=== PATIENT | male | born 1955 | race Caucasian/White ===

== ENCOUNTER → 2024-03-20 | Outpatient (BNVA) | payer MEDICARE, MEDICAID, SELFPAY | END | disposition home or self-care (01) | PROVIDERS: PCP Family Medicine; Referring Provider Family Medicine; Visit Provider Urology | DX: N40.1 Benign prostatic hyperplasia with lower urinary tract symptoms (principal); N13.8 Other obstructive and reflux uropathy; R35.0 Frequency of micturition; N28.89 Other specified disorders of kidney and ureter; E11.9 Type 2 diabetes mellitus without complications; I10 Essential (primary) hypertension; F41.9 Anxiety disorder, unspecified; Z80.9 Family history of malignant neoplasm, unspecified; E66.9 Obesity, unspecified; Z68.36 Body mass index [BMI] 36.0-36.9, adult; F17.210 Nicotine dependence, cigarettes, uncomplicated; K21.9 Gastro-esophageal reflux disease without esophagitis; J44.9 Chronic obstructive pulmonary disease, unspecified; F32.A Depression, unspecified | CPT/HCPCS: 99212; G0463 ==

== ENCOUNTER → 2024-04-25 | Outpatient (CLI) | payer MEDICARE, MEDICAID, SELFPAY ==
--- NOTE | 2024-04-25 09:45 | XR_ITS ---
Examination: Retroperitoneal ultrasound, complete Technique: Multiple high resolution grayscale images of the retroperitoneum obtained, including kidneys and bladder. Exam date and time:April 25, 2024 0933 hours INDICATIONS: Diagnosis malignant neoplasm kidneys, CT examination December 26, 2023 12 mm low-density mass lower pole right kidney, patient states frequent urination for years. FINDINGS: Right kidney 9.7 x 6.0 x 7.0 cm cortex 1.8 cm Lower pole cyst 21 mm Left kidney 11.4 x 6.1 x 4.6 cm renal cortex 1.7 cm Moderate bilateral renal parenchymal scar formation No bladder mass or bladder calculi Bladder prevoid volume 48.6 cc unable to void Prostate volume 38.4 cc no prostate nodules IMPRESSION: Lower pole right renal cyst 21 x 19 mm No solid renal mass lesion Moderate bilateral renal parenchymal scar formation
[2024-04-25 11:02] LABS: Prostate Specific Antigen 0.27 ng/mL (0-4.00)
== END | disposition home or self-care (01) ==
LOC: CDIM 09:02 → COPL 09:56
PROVIDERS: Referring Provider Urology; Visit Provider Radiology Diagnostic Radiology
DX: N28.1 Cyst of kidney, acquired (principal); N28.89 Other specified disorders of kidney and ureter; N40.1 Benign prostatic hyperplasia with lower urinary tract symptoms
CPT/HCPCS: 36415; 76770; 84153

== ENCOUNTER → 2024-06-29 | Outpatient (BNVA) | payer MEDICARE, MEDICAID, SELFPAY | END | disposition home or self-care (01) | PROVIDERS: PCP Family Medicine; Referring Provider Family Medicine; Visit Provider Urology | DX: N40.1 Benign prostatic hyperplasia with lower urinary tract symptoms (principal); N13.8 Other obstructive and reflux uropathy; N28.1 Cyst of kidney, acquired; I10 Essential (primary) hypertension; E11.42 Type 2 diabetes mellitus with diabetic polyneuropathy; F41.9 Anxiety disorder, unspecified; E66.9 Obesity, unspecified; Z68.36 Body mass index [BMI] 36.0-36.9, adult; F17.210 Nicotine dependence, cigarettes, uncomplicated; J44.9 Chronic obstructive pulmonary disease, unspecified; K21.9 Gastro-esophageal reflux disease without esophagitis | CPT/HCPCS: 81003; 99212; G0463 ==

== ENCOUNTER → 2024-07-31 | Outpatient (CLI) | payer MEDICARE, MEDICAID, SELFPAY ==
--- NOTE | 2024-07-31 09:00 | XR_ITS ---
Examination: MRI brain without intravenous contrast. Date and time of exam: July 31, 2024 0930 hours INDICATIONS: Increasing memory loss 1 year COMPARISON: October 16, 2013 Technique: Multiple axial and sagittal images of the brain obtained. Siemens high-resolution 1.5 Starla short bore scanners utilized. Sagittal sections, T1-weighted, TR 500, TE 14, are performed. Axial sections proton-density and T2-weighted have been obtained. Inversion recovery axial images, TR 9, 260, TE 111, TI 2500. Diffusion weighted images, axial sections, TR 4800, TE 128, B value 1000 Axial sections, ADC map, TR 4800, TE 128 Findings: Enlargement of the sella turcica is not present. The optic chiasm and infundibular are not remarkable. Prepontine and interpeduncular cisterns are not enlarged. There is no localized enlargement of the medulla or benny. Fourth ventricle and cerebellar tonsils appear normal in position. No subacute area of hemorrhage density is seen. Mass in the cerebellopontine angle region is not evident. Globes symmetrical. Orbital musculature including medial lateral rectus muscles do not exhibit abnormality. Diffusion-weighted images demonstrate no focus of restricted diffusion. Increased white matter signal mild Mass effect upon the ventricular system is not identified. Impression: Negative for acute hemorrhage, mass effect or midline shift No acute infarct Mild chronic microvascular white matter change
== END | disposition home or self-care (01) ==
PROVIDERS: PCP Family Medicine; Referring Provider Family Medicine; Visit Provider Family Medicine
DX: R90.82 White matter disease, unspecified (principal)
CPT/HCPCS: 70551

== ENCOUNTER 2025-02-10 19:47 | Inpatient (IN) | payer MEDICARE, MEDICAID, SELFPAY ==
[2025-02-10] VITALS (7 sets, daily range): BP systolic 103–166; BP diastolic 65–108; PULSE 74–96; RESP 16–84; TEMP 37.5; O2SAT 9–96; BMI 35.6
--- NOTE | 2025-02-10 19:59 | EKG_ITS ---
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
--- NOTE | 2025-02-10 19:59 | XR_ITS ---
Examination: AP chest single view Technique: AP portable semiupright chest single view Date and time: May 12, 2025, 2011 hrs., Comparison February 15, 2022 Indications: Shortness of breath chest pain today. Findings: Moderate enlargement cardiac contour Prominent vascular congestion including central vascular engorgement Perihilar basilar edema. Possible superimposed pneumonia at the right lung base Impression: Mild CHF Possible superimposed pneumonia right base
--- NOTE | 2025-02-10 20:11 | PD.EDADULT ---
ED General RME/HPI General Chief complaint: Shortness of Breath/Dyspnea Stated complaint: SOB Time Seen by Provider: 02/10/25 19:58 Arrival date/time: 02/10/25 19:47 CC: Shortness of breath difficulty breathing HPI patient has been lying on his bed for the past 5 days but getting up to use the restroom and get something to eat. The patient states he had intermittent episodes shortness of breath for the past 3 weeks. Patient has a history of COPD and about diabetes is seen by Dr. Miranda. Patient also has a history of hypertension hyperlipidemia. Patient states he stopped drinking 25 years ago stopped smoking [address] drugs Related Data Home Medications ?Medication ?Instructions ?Recorded ?Confirmed aspirin 81 mg tablet 81 mg PO QDAY 10/03/20 02/11/25 gabapentin 600 mg tablet 600 mg PO QID 10/03/20 02/11/25 metformin 500 mg tablet 500 mg PO BID 10/03/20 02/11/25 omeprazole 20 mg capsule,delayed 20 mg PO DAILY 10/03/20 02/11/25 release tiotropium 2.5 mcg-olodaterol 2.5 2 puff inhalation Q24H 10/27/20 02/11/25 mcg/actuation mist for inhalation (Stiolto Respimat) dutasteride 0.5 mg capsule 0.5 mg PO QDAY 03/20/24 02/11/25 losartan 100 1 tab PO QDAY 03/20/24 02/11/25 mg-hydrochlorothiazide 25 mg tablet multivitamin 1 tab PO QDAY 03/20/24 02/11/25 hydrochlorothiazide 12.5 mg capsule 12.5 mg PO DAILY 02/11/25 02/11/25 losartan 25 mg tablet 25 mg PO DAILY 02/11/25 02/11/25 metoprolol succinate 100 mg 100 mg PO DAILY 02/11/25 02/11/25 tablet,extended release 24 hr rosuvastatin 10 mg tablet 10 mg PO DAILY 02/11/25 02/11/25 Allergies Allergy/AdvReac Type Severity Reaction Status Date / Time No Known Drug Allergies Allergy Verified 02/10/25 20:00 Review of Systems Review of Systems Narrative Review of Systems: GEN: No fever, no chills, no weight loss EYES: No discharge, no visual changes, no pain HEENT: No ear pain, no congestion, no sore throat PULM: + shortness of breath, no cough, no congestion CV: No chest pain, no dyspnea on exertion, no palpitations GI: No nausea, no vomiting, no diarrhea, no pain, no constipation : No frequency, no urgency, no dysuria MUSC/SKEL: No joint pain, no back pain SKIN: No rash PSYCH: No hallucinations, no depression HEME/LYMPH: No easy bleeding or bruising tendencies NEURO: + weakness, no headache ED Exam Narrative Physical exam: [General: Morbidly obese in mild discomfort but not in any acute distress Head normocephalic HEENT: Eyes: Pupils are PERRLA EOMs are intact mouth pink dry membranes uvula is midline swallow symmetrical phonation is normal all other subsystems of HEENT are within acceptable limits Neck is supple nontender, no JVD no edema Chest equal chest rise nontender to palpation Respiratory: Clear to auscultation no wheezes crackles or rubs CV: Rate rhythm is regular no murmurs rubs or clicks Abdomen is distended secondary to body habitus soft nontender no masses positive bowel sounds all 4 quadrants Back: No CVA tenderness no spinous process tenderness from cervical spine thoracic and lumbar spine Skin: Intact no petechiae rash induration ulceration or crepitus Extremities: Moving all extremity against resistance cap refill less than 2 seconds neurosensory intact. No lower extremity edema Neuro: Awake alert oriented x3 Glascow coma 15 no focal deficits] Course Course Course Narrative: Patient's case clinical presentation laboratory findings EKG and chest x-ray discussed with Dr. Isabel, telecommunications line mechanic, who states patient can be ruled out with a 3-hour troponin. Reassessment of this patient at 2210, the patient when taken off oxygen, decreased oxygen saturations to 84%. Given that the x-ray shows that there is a possible superimposed pneumonia in the patient's inactivity the past 5 years I am also concerned whether the patient had a PE and we will CTA the chest to confirm the pneumonia as well as rule out pulmonary emboli. Patient's case presented to Dr. Mayberry, his resident who agreed to accept the patient for hypoxemia COPD exacerbation pneumonia. Quality Measures none Orders Category Date Time Status Bedside COVID-19 Antigen Test NOW Care 02/10/25 19:59 Active COVID-19 Screening Questionnaire NOW Care 02/10/25 22:[address] Screening NOW Care 02/10/25 21:33 Active Decision to Admit X1 Care 02/10/25 22:36 Completed EKG (ED ONLY) *Do not use* NOW Care 02/10/25 19:59 Completed Insert IV NOW Care 02/10/25 20:[address] angio chest Stat Exams 02/10/25 21:33 Completed EKG (ED Only) Stat Exams 02/10/25 19:59 Draft XR chest 1V Stat Exams 02/10/25 19:59 Completed B-Type Natriuretic Peptide Stat Lab 02/10/25 20:36 Completed CBC Stat Lab 02/10/25 20:36 Completed Comprehensive Metabolic Panel Stat Lab 02/10/25 20:36 Completed Drug Screen,Urine Stat Lab 02/11/25 04:40 Completed Influenza A & B Rapid Panel Stat Lab 02/11/25 09:50 Completed LDH (Lactate Dehydrogenase) Stat Lab 02/10/25 20:36 Completed Magnesium Stat Lab 02/10/25 20:36 Completed Partial Thromboplastin Time Stat Lab 02/10/25 20:36 Completed Prothrombin Time with INR Stat Lab 02/10/25 20:36 Completed Troponin I Stat Lab 02/10/25 20:36 Completed Urinalysis, C/S if Indicated Stat Lab 02/11/25 04:40 Completed Urine Culture Stat Lab 02/11/25 04:40 Received ALBUTEROL RT 0.5ml [Proventil Rt 0.5ml] Med 02/10/25 19:59 Discontinued 2.5 mg INH X1 ONE ALBUTEROL RT 0.5ml [Proventil Rt 0.5ml] Med 02/10/25 20:21 Discontinued 7.5 mg INH X1 ONE MethylPREDNISolone.* [SoluMEDROL Inj] Med 02/10/25 20:14 Discontinued 125 mg IVP X1 ONE Sodium Chloride Rt Amanda 0.9% [NS Rt Amanda 0.9%] Med 02/10/25 20:21 Active 3 ml INH PRN PRN cefTRIAXone/D5w 1gm IV premix [Rocephin/D5w 1gm IV Med 02/10/25 21:59 Discontinued premix] 1 gm in 50 ml IV X1 Vital Signs Vital signs: Vital Signs Temperature 99.5 F 02/10/25 19:48 Pulse Rate 92 02/10/25 19:48 Respiratory Rate 17 02/10/25 19:48 Blood Pressure 166/108 H 02/10/25 19:48 Pulse Oximetry (%) 92 L 02/10/25 19:48 Oxygen Delivery Method Oxy Mask 02/10/25 19:48 Discharge Plan Plan Patient Disposition: Admit Acute Care w/in Hospital Patient condition on transfer: Stable Problem List Clinical Impression: COPD exacerbation, Pneumonia, Shortness of breath, Elevated troponin 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 CMP shows no acute electrolyte imbalances and elevated BUN of 28 no elevated T. bili, AST at 147 ALT of 69 LDH 391 Troponin of 0.522 BNP 686. Medication Administration(s) Medication Administration History Acetaminophen (Acetaminophen 325 Mg Tablet) 650 mg PO Q4HR PRN PRN Reason: Fever >100.4 an pain 1-3 Stop: 03/13/25 00:34 Hydrocodone Bitart/Acetaminophen (Hydrocodone/Apap 5/325 Tablet) 1 tab PO Q6HR PRN PRN Reason: Pain4-7 Stop: 02/16/25 09:03 Last Admin: 02/11/25 15:26 Dose: 1 tab Documented By: Admin: 02/11/25 09:39 Dose: 1 tab Documented By: GILLIAN Albuterol/Ipratropium (Albuterol/Ipratropium (Duoneb) Rt Amanda 3 Ml Nebu) 3 ml INH Q6HRRT [place] Stop: 03/13/25 00:59 Last Admin: 02/11/25 19:20 Dose: 3 ml Documented By: Admin: 02/11/25 13:15 Dose: Not Given Documented By: ABIEL Non-Admin Reason: Not In Room Admin: 02/11/25 06:59 Dose: Not Given Documented By: CARL Non-Admin Reason: Patient Refused Admin: 02/11/25 02:06 Dose: 3 ml Documented By: KATIE Aspirin (Aspirin Ec 81 Mg Tabec) 81 mg PO QDAY [place] Stop: 03/13/25 08:59 Last Admin: 02/11/25 08:21 Dose: 81 mg Documented By: GILLIAN Atorvastatin Calcium (Atorvastatin Calcium 20 Mg Tablet) 80 mg PO HS [place] Stop: 03/13/25 20:59 Last Admin: 02/11/25 20:25 Dose: 80 mg Documented By: PAULA Gabapentin (Gabapentin 300 Mg Capsule) 600 mg PO QID [place] Stop: 03/13/25 16:59 Last Admin: 02/11/25 20:25 Dose: 600 mg Documented By: Admin: 02/11/25 17:23 Dose: 600 mg Documented By: GILLIAN Ceftriaxone Sodium/Dextrose (Rocephin/D5w 1gm Iv Premix) 1 gm in 50 mls @ 100 mls/hr IV QDAY [facility] Stop: 02/18/25 08:59 Last Admin: 02/11/25 08:23 Dose: 100 mls/hr Documented By: GILLIAN Azithromycin 500 mg/ Sodium (Chloride) 250 mls @ 250 mls/hr IV QDAY [facility] Stop: 02/19/25 08:59 Heparin Sodium/Dextrose (Heparin In D5w Ivpb) 25,000 unit in 250 mls @ 9.969 mls/hr IV .Q24H [facility]; Protocol Stop: 02/25/25 18:29 Last Admin: 02/11/25 20:57 Dose: 9 units/kg/hr, 9.969 mls/hr Documented By: PAULA Co-signed By: Losartan Potassium (Losartan Potassium 25 Mg Tablet) 25 mg PO DAILY [facility] Stop: 03/13/25 10:29 Last Admin: 02/11/25 10:30 Dose: 25 mg Documented By: GILLIAN Methylprednisolone Sodium Succinate (Methylprednisolone Sod Succ 40 Mg/Ml Vial) 40 mg IVP QDAY [facility] Stop: 02/18/25 08:59 Last Admin: 02/11/25 08:22 Dose: 40 mg Documented By: GILLIAN Metoprolol Succinate (Metoprolol Succinate Xl 25 Mg Tabcr) 100 mg PO DAILY [facility] Stop: 03/13/25 10:29 Last Admin: 02/11/25 11:39 Dose: 100 mg Documented By: GILLIAN Nicotine (Nicotine Patch 21 Mg/24 Hr Patch.Td24) 21 mg TOP QDAY [facility] Stop: 03/13/25 14:14 Last Admin: 02/11/25 15:26 Dose: 21 mg Documented By: GILLIAN Pantoprazole Sodium (Pantoprazole 20 Mg Tablet) 20 mg PO QDAY [place] Stop: 03/13/25 08:59 Last Admin: 02/11/25 08:21 Dose: 20 mg Documented By: GILLIAN Sodium Chloride (Sodium Chloride Rt Amanda 0.9% 3 Ml Nebu) 3 ml INH PRN PRN PRN Reason: SOLN Stop: 03/12/25 20:20 Discontinued Medications Albuterol (Albuterol Rt 2.5 Mg/0.5 Ml Nebu) 2.5 mg INH X1 ONE Stop: 02/10/25 20:00 Last Admin: 02/10/25 20:33 Dose: 2.5 mg Documented By: KATIE Albuterol (Albuterol Rt 2.5 Mg/0.5 Ml Nebu) 7.5 mg INH X1 ONE Stop: 02/10/25 20:22 Last Admin: 02/10/25 20:33 Dose: 7.5 mg Documented By: KATIE Atorvastatin Calcium (Atorvastatin Calcium 20 Mg Tablet) 20 mg PO HS [place] Stop: 03/13/25 20:59 Bumetanide (Bumetanide Inj 0.25 Mg/Ml Vial 4 Ml) 1 mg IVP QDAY [place] Stop: 03/13/25 08:59 Dextrose (Dextrose 50%-Water Inj 50 Ml Syringe) 25 ml IV Q15MIN PRN PRN Reason: BG 50-70 responsive npo pt Stop: 03/12/25 23:51 Dextrose (Dextrose 50%-Water Inj 50 Ml Syringe) 50 ml IV Q15MIN PRN PRN Reason: BG <50 OR BG <70 & pt unresponsive Stop: 03/12/25 23:51 Furosemide (Furosemide Inj 10 Mg/Ml Vial 2 Ml) 20 mg IVP X1 ONE Stop: 02/11/25 02:56 Last Admin: 02/11/25 04:00 Dose: 20 mg Documented By: CAROLINE Furosemide (Furosemide Inj 10 Mg/Ml 4ml Vial) 40 mg IVP X1 ONE Stop: 02/11/25 18:31 Last Admin: 02/11/25 19:01 Dose: 40 mg Documented By: GILLIAN Glucagon (Glucagon Inj 1 Mg Vial) 1 mg IM Q15MIN PRN PRN Reason: BG <70, and no IV access Heparin Sodium (Porcine) (Heparin Sod Inj 5000 Unit/Ml Vial) 5,000 unit SC BID [place] Stop: 02/25/25 08:59 Last Admin: 02/11/25 08:22 Dose: 5,000 unit Documented By: GILLIAN Co-signed By: DAMIÁN Heparin Sodium (Porcine) (Heparin Sod Inj 5000 Unit/Ml Vial) 4,000 unit IV X1 ONE; Protocol Stop: 02/11/25 18:31 Last Admin: 02/11/25 20:56 Dose: 4,000 unit Documented By: PAULA Co-signed By: Ceftriaxone Sodium/Dextrose (Rocephin/D5w 1gm Iv Premix) 1 gm in 50 mls @ 100 mls/hr IV X1 ONE Stop: 02/10/25 22:28 Last Infusion: 02/10/25 22:45 Dose: Infused Documented By: Admin: 02/10/25 22:11 Dose: 100 mls/hr Documented By: RANCHO Azithromycin 500 mg/ Sodium (Chloride) 250 mls @ 250 mls/hr IV QDAY [facility] Stop: 02/18/25 08:59 Azithromycin 500 mg/ Sodium (Chloride) 250 mls @ 250 mls/hr IV X1 ONE Stop: 02/11/25 01:14 Last Infusion: 02/11/25 02:20 Dose: Infused Documented By: Admin: 02/11/25 00:41 Dose: 250 mls/hr Documented By: RANCHO Insulin Human Lispro (Insulin Lispro (Admelog) 1 Unit/0.01 Ml Unit) 0 unit SC ACHS [facility]; Protocol Stop: 03/13/25 07:29 Last Admin: 02/11/25 07:35 Dose: 1 unit Documented By: GILLIAN Co-signed By: INDER Methylprednisolone Sodium Succinate (Methylprednisolone Sod Succ 62.5 Mg/Ml 2ml Vial) 125 mg IVP X1 ONE Stop: 02/10/25 20:15 Last Admin: 02/10/25 20:31 Dose: 125 mg Documented By: RANCHO Morphine Sulfate (Morphine Sulf Inj 4 Mg/Ml Vial) 4 mg IVP Q4HR PRN PRN Reason: pain 4-8 Stop: 02/16/25 00:35 Morphine Sulfate (Morphine Sulf Inj 4 Mg/Ml Vial) 4 mg IVP Q4HR PRN PRN Reason: pain 8-10 Stop: 02/16/25 00:35 Sodium Chloride (Sodium Chloride Rt 10% 15 Ml Nebu) 5 ml INH X1 ONE Stop: 02/10/25 23:40 Last Admin: 02/11/25 04:14 Dose: 5 ml Documented By: KATIE
[2025-02-10] MEDS: MethylPREDNISolone SOD SUCC 62.5 MG/ML 2ML VIAL 125 MG IVP (20:31)
[2025-02-10] MEDS: ALBUTEROL RT 2.5 MG/0.5 ML NEBU INH (20:33)
[2025-02-10] MEDS: ALBUTEROL RT 2.5 MG/0.5 ML NEBU 7.5 MG INH (20:33)
[2025-02-10 20:52] LABS: Basophils # (Auto) 0.0 Thou/mm3 (0.0-0.2); Basophils % (Auto) 0 % (0-2.5); Eosinophils # (Auto) 0.0 Thou/mm3 (0.0-0.5); Eosinophils % (Auto) 0 % (0-10); Hematocrit 54.0 % (41.0-53.0); Hemoglobin 17.0 g/dL (13.5-16.0); Immature Granulocytes Auto 0.02 Thou/mm3 (0.00-0.00); Lymphocytes # (Auto) 1.4 Thou/mm3 (1.0-4.8); Lymphocytes % (Auto) 19 % (10-50); Mean Corpuscular HGB Conc 31.5 g/dl (31.0-37.0); Mean Corpuscular Hemoglobin 27.9 pg (25.0-35.0); Mean Corpuscular Volume 89 fL (80-100); Monocytes # (Auto) 0.8 Thou/mm3 (0.0-0.8); Monocytes % (Auto) 11 % (0-12); Neutrophils # (Auto) 5.1 Thou/mm3 (1.8-7.7); Neutrophils % (Auto) 69 % (37-80); Nucleated Red Blood Cell # 0.00 Thou/mm3 (0.00-0.00); Nucleated Red Blood Cell % 0 /100 WBC (0); Platelet Count 144 Thou/mm3 (140-440); RDW Standard Deviation 51.2 fL (35.1-43.9); Red Blood Count 6.09 Miln/mm3 (4.50-5.90); White Blood Count 7.4 Thou/mm3 (3.8-10.6)
[2025-02-10 21:14] LABS: INR 1.2 (0.9-1.3); Partial Thromboplastin Time 24.3 Seconds (22.0-36.0); Prothrombin Time 12.7 Seconds (9.0-12.2)
[2025-02-10 21:19] LABS: B-Type Natriuretic Peptide 686 pg/mL (0-100)
[2025-02-10 21:20] LABS: Alanine Aminotransferase 69 U/L (10-49); Albumin, Serum 3.9 gm/dL (3.4-4.8); Albumin/Globulin Ratio 1.3 (1.2-2.2); Alkaline Phosphatase 64 U/L (46-116); Anion Gap 5 (7-16); Aspartate Amino Transferase 147 U/L (0-34); BUN/Creatinine Ratio 23 Ratio (12-20); Bilirubin,Total 0.8 mg/dL (0.3-1.2); Blood Urea Nitrogen 28 mg/dL (9-23); Calcium 9.6 mg/dL (8.3-10.6); Calcium (Corrected) 9.7 mg/dL (8.5-10.1); Carbon Dioxide 28.7 mMol/L (20.0-31.0); Chloride 102 mMol/L (98-107); Creatinine (Component) 1.2 mg/dL (0.6-1.3); Estimated Creatinine Clearance 75.3 mL/min (>60); Globulin 3.1 gm/dL (2.3-3.5); Glucose 100 mg/dL (74-106); LDH (Lactate Dehydrogenase) 391 U/L (120-246); Magnesium 2.3 mg/dL (1.6-2.6); Osmolality,Calculated 277 (275-295); Potassium 4.9 mMol/L (3.4-5.1); Sodium 136 mMol/L (136-145); Total Protein 7.0 gm/dL (5.7-8.2); eGFR > 60 See Note
[2025-02-10 21:30] LABS: Troponin I 0.522 ng/mL (0.0-0.045)
--- NOTE | 2025-02-10 21:33 | XR_ITS ---
Examination: CTA chest with intravenous contrast 2-D reconstructions 3-D reconstructions, vascular Date and time of exam: February 09, 2025, 1051 hrs. Comparison March 08, 2022 Indications: Worsening chest pain shortness of breath beginning 3 months ago CTDI: vol (mGy) 12.9 DLP: (mGycm) 562 Technique: Multiple axial sections of the thorax have been obtained. 3 mm slice thickness, from below the hemidiaphragms to above the apices of the lungs. Mediastinal and lung density settings have been obtained. 2-D sagittal and coronal reconstructions. 3-D angiographic renderings, 3-D volume renderings, 3D post processing, vascular maximum intensity projections obtained. Contrast administered is 100 cc [id number]. Low dose protocols were performed. One or more of the following dose reduction techniques were used; automated exposure control, adjustment of the mA and/or KV according to patient size, use of iterative reconstruction technique. Findings: No thoracic aortic aneurysm dilatation or dissection Main pulmonary artery segment 38 mm No pulmonary artery filling defects COPD with areas of airspace destruction Multiple nodules in the right lung, the largest in the right upper lobe 17 mm as well as 12 mm Nodular infiltrate in the right lung No visualized liver or splenic lesion No gallstones No pancreatic mass Nodular thickening left adrenal gland Perinephric stranding Moderate thoracic spondylosis Impression: Negative for thoracic aortic aneurysmal dilatation or dissection Pulmonary artery hypertension Negative for pulmonary artery emboli COPD Significant pneumonia right lung Multiple nodules in the right lung, differential would include infectious nodules, underlying pulmonary neoplastic nodules not excluded Follow-up chest imaging post antibiotic therapy recommended
[2025-02-10] MEDS: cefTRIAXone/D5w 1gm IV premix 1 GM/50 ML BAG IV (22:11)
--- NOTE | 2025-02-10 23:36 | PD.RESHP ---
Documentation for date of: 02/10/25 [facility] History of Present Illness History of present illness: Mr. Molina is a 70-year-old with past medical history of of type 2 diabetes, hypertension, and COPD who presented to the ED on 02/11/2025 with chief complaint of worsening shortness of breath. Per patient for the last few months he has noticed worsening shortness of breath. Over the last 3 days shortness of breath is worsening and has become difficult to breathe while supine. Patient reportedly does not use no oxygen at home. Takes about 5-6 steps before having dyspnea. Reports occasional dry cough, orthopnea and paroxysmal nocturnal dyspnea, patient mention he is unable to sleep on his sides. Patient also reports recurrent bilateral lower extremity edema to improve after few days. Patient also endorses sharp right sided chest pain that radiates to the back. The pain is intermittent and nonreproducible. Patient denies chest pain, palpitation, nausea vomiting, fever, chills, diarrhea/constipation and urinary symptoms. He denies any recent sick contact. Of note, patient mentioned that he has not been compliant with his current medication. ED Course: -Initial vitals were BP 160s over 108, pulse 92%, respiratory 17, temperature 99.5. O2 sat 92% on 5 L nasal cannula -Labs significant for AST 147, ALT 69, lactate dehydrogenase 381, BNP 686, troponin 0.522 -Imaging included chest x-ray showed mild CHF and superimposed pneumonia in the right lung base. Chest CTA showed pulmonary artery hypertension, COPD, significant pneumonia of the right lung, multiple nodules in the right lung -In the ED, patient was given methylprednisolone 125 mg x 1, albuterol 2.5 mg and 7.5 mg x 1 -Patient was admitted for acute hypoxic respiratory failure secondary to COPD exacerbation Review of Systems Review of systems otherwise negative except what is mentioned above. Past Medical History: Mentioned above plus diabetic neuropathy Family History: Noncontributory Surgical History: None Social History: Retired, lives at home. Denies recreational drug use. He smoking last week, used to smoke 1 pack/day for 50 years. Stop drinking 25 years ago. Current Medications: Pending med recc Allergies: No known drug allergies Exam Vital Signs Temp Pulse Resp BP Pulse Ox O2 Del Method O2 Flow Rate 99.5 F 88 16 166/108 H 9 L Oxy Mask 4 02/10/25 19:48 02/10/25 21:29 02/10/25 21:29 02/10/25 19:48 02/10/25 21:29 02/10/25 19:48 02/10/25 21:29 Narrative Exam General: Alert. Morbidly obese in mild respiratory distress. Skin: Warm, dry, intact. No rash or ecchymoses. Head: Normocephalic, atraumatic. Eye: Normal conjunctiva, PERRL. Throat: Oral mucosa moist. No obvious lesions in oropharynx. Cardiovascular: Regular rate and rhythm, no murmur, +S1/S2. Respiratory: Lungs are clear to auscultation, bilateral expiratory wheezes with some crackles heard at the bases Gastrointestinal: Soft, nontender, mildly distended secondary to body habitus. No guarding or rebound tenderness. Extremities: +1 pitting edema bilateral , no cyanosis, no clubbing. Neuro: Alert and oriented x3.No focal deficits observed. Conversant, moving all extremities. No overt cerebellar signs/incoordination. Psychiatric: Cooperative, appropriate affect Results: Labs 02/10/25 20:36 02/10/25 20:36 Labs: Short CBC 02/10/25 Range/Units 20:36 WBC 7.4 (3.8-10.6) Thou/mm3 Hgb 17.0 H (13.5-16.0) g/dL Hct 54.0 H (41.0-53.0) % Plt Count 144 (140-440) Thou/mm3 BMP 02/10/25 20:36 Sodium 136 Potassium 4.9 Chloride 102 Carbon Dioxide 28.7 BUN 28 H Creatinine 1.2 Glucose 100 Calcium 9.6 Cardiac Enzymes 02/10/25 Range/Units 20:36 Troponin I 0.522 H* (0.0-0.045) ng/mL Liver Function 02/10/25 Range/Units 20:36 Total Bilirubin 0.8 (0.3-1.2) mg/dL AST 147 H (0-34) U/L ALT 69 H (10-49) U/L Alkaline Phosphatase 64 (46-116) U/L Albumin 3.9 (3.4-4.8) gm/dL Quality Measures Quality Measures VTE prophylaxis Advance care planning discussed with:: patient Medications Home Medications and Allergies Home Medications ?Medication ?Instructions ?Recorded ?Confirmed ?Type aspirin 81 mg tablet 81 mg PO QDAY 10/03/20 02/11/25 History gabapentin 600 mg tablet 600 mg PO QID 10/03/20 02/11/25 History metformin 500 mg tablet 500 mg PO BID 10/03/20 02/11/25 History omeprazole 20 mg capsule,delayed 20 mg PO DAILY 10/03/20 02/11/25 History release tiotropium 2.5 mcg-olodaterol 2.5 2 puff inhalation Q24H 10/27/20 02/11/25 History mcg/actuation mist for inhalation (Stiolto Respimat) dutasteride 0.5 mg capsule 0.5 mg PO QDAY 03/20/24 02/11/25 History losartan 100 1 tab PO QDAY 03/20/24 02/11/25 History mg-hydrochlorothiazide 25 mg tablet multivitamin 1 tab PO QDAY 03/20/24 02/11/25 History hydrochlorothiazide 12.5 mg capsule 12.5 mg PO DAILY 02/11/25 02/11/25 History losartan 25 mg tablet 25 mg PO DAILY 02/11/25 02/11/25 History metoprolol succinate 100 mg 100 mg PO DAILY 02/11/25 02/11/25 History tablet,extended release 24 hr rosuvastatin 10 mg tablet 10 mg PO DAILY 02/11/25 02/11/25 History Allergies Allergy/AdvReac Type Severity Reaction Status Date / Time No Known Drug Allergies Allergy Verified 02/10/25 20:00 Visit Medications Albuterol/Ipratropium (Albuterol/Ipratropium (Duoneb) Rt Amanda 3 Ml Nebu) 3 ml INH Q6HRRT YASMANY Stop: 03/13/25 00:59 Methylprednisolone Sodium Succinate (Methylprednisolone Sod Succ 40 Mg/Ml Vial) 40 mg IVP QDAY YAS[place]Y Stop: 02/18/25 08:59 Sodium Chloride (Sodium Chloride Rt Amanda 0.9% 3 Ml Nebu) 3 ml INH PRN PRN PRN Reason: SOLN Stop: 03/12/25 19:58 Sodium Chloride (Sodium Chloride Rt Amanda 0.9% 3 Ml Nebu) 3 ml INH PRN PRN PRN Reason: SOLN Stop: 03/12/25 20:20 Discontinued Medications Albuterol (Albuterol Rt 2.5 Mg/0.5 Ml Nebu) 2.5 mg INH X1 ONE Stop: 02/10/25 20:00 Last Admin: 02/10/25 20:33 Dose: 2.5 mg Albuterol (Albuterol Rt 2.5 Mg/0.5 Ml Nebu) 7.5 mg INH X1 ONE Stop: 02/10/25 20:22 Last Admin: 02/10/25 20:33 Dose: 7.5 mg Ceftriaxone Sodium/Dextrose (Rocephin/D5w 1gm Iv Premix) 1 gm in 50 mls @ 100 mls/hr IV X1 ONE Stop: 02/10/25 22:28 Last Infusion: 02/10/25 22:45 Dose: Infused Methylprednisolone Sodium Succinate (Methylprednisolone Sod Succ 62.5 Mg/Ml 2ml Vial) 125 mg IVP X1 ONE Stop: 02/10/25 20:15 Last Admin: 02/10/25 20:31 Dose: 125 mg Assessment & Plan Plan Mr. Molina is a 70-year-old with past medical history of of type 2 diabetes, hypertension, and COPD who presented to the ED on 02/11/2025 with chief complaint of worsening shortness of breath. Admitted for acute hypoxic respiratory i failure secondary to COPD exacerbation evaluation and management #Acute hypoxic respiratory failure secondary to #COPD exacerbation #Superimposed RLL pneumonia Patient presented with worsen shortness of breath and dry cough. O2 sat 92% 4 L nasal cannula. Denies fever, chills and recent sick contact. Respiratory respiratory likely secondary to pneumonia and possible CHF exacerbation. Concern for CHF exacerbation given the fact that patient has orthopnea, paroxysmal nocturnal dyspnea and bilateral bilateral extremity lower edema. Chest x-ray showed mild CHF with superimposed pneumonia of the right lung. Chest CTA showed COPD, pulmonary artery hypertension, significant pneumonia right lung. Multiple nodules in the right lung. Follow-up chest imaging post antibiotic treatment COVID-19 negative, influenza A and B negative -Started ceftriaxone 1gm daily -Started azithromycin 200 mg daily -DuoNeb as needed -Sputum culture and Gram stain ordered -Pain control Tylenol morphine -Supplemental O2 as needed -Maintain saturation 88-92% #Acute CHF #Hx of HLD Patient has orthopnea, paroxysmal nocturnal dyspnea and bilateral lower extremity edema, additionally crackles heard on pulmonary exam. Per med list patient takes Metoprolol, Losartan, and HCTZ 10mg qday. Patient does not recall his medication, and reports non-compliance. BNP 686 suggestive of heart failure - Started Atorvastatin 20 mg Qday - Lasix 40 mg x1 - Cardiac echo ordered - Strict intakes and output - A1C, procal, TSH, lipid panel - Pending med recc #NSTEMI Likely NSTEMI type II secondary to demand ischemia from acute hypoxic respiratory failure. Patient endorses only right-sided pain radiating to the back, denies chest pain and palpitation. Chest CTA showed Pneumonia and COPD.ED provider contacted Dr. Isabel, low suspicion FOR NSTEMI type I or aortic dissection given the age and risk factors DM, HLD in this patient. Troponin 0.522>0.422. EKG showed sinus rhythm with rate of 91 and QTc of 473 - Stop trending troponin - Continue to monitor - Started Aspirin 81 mg daily #Elevated liver enzymes. Likely transient to hypoperfusion form demand ischemia and po oral intake AST 147 and ALT 69 - continue to monitor for possible symptomatic liver injury - follow the plans mention above #[id number] type 2 diabetes mellitus Admission glucose 100, last A1c on 03/04/2022 is 5.6. Patient reported history of diabetes in which she is on home medication metformin. - Started insulin sliding scale - Insulin glucose checks #Primary hypertension Patient reports show hypertension, does not recall is on medication. Reports noncompliance to medication. On admission blood pressure 166/108 -Pending med rec Hospital management: Lines: peripheral IV GI prophylaxis: pantoprazole DVT prophylaxis: Heparin SC Disposition: tele for management of AHRF CODE STATUS: Full code Patient seen and assessed under supervision of attending physician Dr.Alhalaibeh Elizabeth Dailey MD PGY-1, Internal Medicine Please note: this document was transcribed using voice recognition technology; minor inaccuracies may be present. Attending Provider Attestation/Addendum After examination of the patient and review of the clinical data I feel that this patient needs admission to the hospital for further treatment/evaluation. Plan of care discussed with patient and is in agreement. I Brent Osorio MD, attest that I was physically present for godwin portions of evaluation, and examined patient, labs and imagings and plan of care were discussed with IM residents team, and I agree with the findings and plans documented above.
[2025-02-11] VITALS (15 sets, daily range): BP systolic 134–159; BP diastolic 84–105; PULSE 60–82; RESP 14–22; TEMP 35.9–36.9; O2SAT 92–99; BMI 34.0
--- NOTE | 2025-02-11 00:29 | ECHO_ITS ---
Transthoracic Echo Report Ht (in): 71 Wt (lb): 244 Exam Location: [facility] Status: Inpatient Biophysics Scientist: Irais Medina Indications: Procedure Performed: BP: 139 / 82 HR: 64 MEASUREMENTS (Male / Female) Normal Values 2D ECHO LV Diastolic Diameter PLAX 4.9 cm 4.2 - 5.9 / 3.9 - 5.3 cm LV Systolic Diameter PLAX 3.6 cm IVS Diastolic Thickness 1.2 cm 0.6 - 1.0 / 0.6 - 0.9 cm LVPW Diastolic Thickness 1.5 cm 0.6 - 1.0 / 0.6 - 0.9 cm LV Relative Wall Thickness 0.6 LVOT Diameter 2.0 cm Ascending Aorta Diameter 3.4 cm M-MODE AV Cusp Separation MM 1.3 cm DOPPLER AV Peak Velocity 119.0 cm/s AV Peak Gradient 5.7 mmHg AV Mean Gradient 3.0 mmHg AV Velocity Time Integral 28.3 cm LVOT Peak Velocity 83.5 cm/s LVOT Peak Gradient 2.8 mmHg LVOT Velocity Time Integral 15.8 cm LVOT Cardiac Index 1328.6 cm?/min?m? AV Area Cont Eq vti 1.8 cm? AV Area Cont Eq pk 2.2 cm? TR Peak Velocity 261.5 cm/s TR Peak Gradient 27.4 mmHg PV Peak Velocity 68.6 cm/s PV Peak Gradient 1.9 mmHg FINDINGS Left Ventricle Mild LVH. There is grade II diastolic dysfunction of the left ventricle (pseudonormal filling pattern). . The ejection fraction is visually estimated at 50-55% Right Ventricle Right ventricle is severely dilated. Moderate- Severe systolic dysfunction. The estimated right ventricular systolic pressure,45 mmHg moderate pulmonary hypertension. Left Atrium The left atrium is normal by two-dimensional, color flow and Doppler imaging with no structural abnormalities, no thrombus formation present. Right Atrium The right atrial cavity size is severely increased. Atrial Septum The interatrial septum appears normal with no evidence of a shunt. Aorta The aorta is normal by two-dimensional, color flow and Doppler interrogation. Mitral Valve The mitral valve is normal by two-dimensional, color flow and Doppler interrogation. Mild mitral regurgitation. Aortic Valve Aortic valve sclerosis without stenosis Tricuspid Valve The tricuspid valve is normal by two-dimensional, color flow and Doppler interrogation.There is moderate tricuspid regurgitation. Pulmonic Valve Mild pulmonic valve regurgitation. Vessels The pulmonary artery appears normal. The inferior vena cava mildly dilated measuring 2.3cm Pericardium There is a trace pericardial effusion without tamponade. CONCLUSIONS Indication: CHF Normal left ventricular size and function. Approximate ejection fraction is 50-55%. Right ventricle is severely dilated. Moderate- Severe systolic dysfunction. Severe Dilated RA Aortic valve sclerosis without stenosis Mild mitral and pulmonic regurgitation. Moderate tricuspid regurgitation with est PAP 45 mm Hg Moderate pulmonary hypertension The inferior vena cava mildly dilated measuring 2.3cm Urvashi Cool (Electronically Signed) Final Date: 12 February 2025 12:29
[2025-02-11] MEDS: AZITHROMYCIN INJ 500 MG in SODIUM CHLORIDE 0.9% 250 ML 250 ML 250 MG IV (00:41)
[2025-02-11 01:18] LABS: Troponin I 0.422 ng/mL (0.0-0.045)
[2025-02-11] MEDS: ALBUTEROL/IPRATROPIUM (Duoneb) RT SOL 3 ML NEBU INH ×2 (02:06→19:20)
[2025-02-11] MEDS: FUROSEMIDE INJ 10 MG/ML VIAL 2 ML 20 MG IVP (04:00)
[2025-02-11] MEDS: SODIUM CHLORIDE RT 10% 15 ML NEBU 5 ML INH (04:14)
--- NOTE | 2025-02-11 04:23 | PC.RT ---
performed sputum induction, pt unable to give sample. cup left at bedside
[2025-02-11 04:29] LABS: Procalcitonin 0.42 ng/ml (0.0-0.49)
[2025-02-11 05:42] LABS: Collection Type, Urine Clean Catch; Squamous Epithelial Cell,Urine 0 /hpf (0-5)
[2025-02-11 06:04] LABS: Amphetamine/Methamp Scrn,U Negative (Negative); Barbiturate Screen,Urine Negative (Negative); Benzodiazepines Screen,Urine Negative (Negative); Benzoylecgonine Screen, Ur Negative (Negative); Fentanyl Screen,Urine Negative (Negative); Opiate Screen,Urine Positive (Negative); THC Screen,Urine Negative (Negative)
[2025-02-11 06:07] LABS: Bacteria,Urine 3+; Bilirubin,Urine Negative (Negative); Blood,Urine 3+ (Negative); Clarity,Urine Clear (Clear/Hazy); Color,Urine Yellow (Lt Yel-Yel); Glucose, Urine Negative (Negative); Ketones,Urine 1+ (Negative); Leukocyte Esterase,Urine Negative (Negative); Nitrite,Urine Negative (Negative); PH,Urine 5.5 (5.0-7.0); Protein,Urine 2+ (Neg - Trace); RBC,Urine 15 /hpf (0-3); Urobilinogen,Urine Negative mg/dL (0.0-1.0); WBC,Urine 2 /hpf (0-5)
[2025-02-11 06:22] LABS: Culture Indicated,Urine Yes; Specific Gravity,Urine 1.025 (1.001-1.035)
[2025-02-11] MEDS: INSULIN LISPRO (AdmeLOG) 1 UNIT/0.01 ML UNIT SC (07:35)
--- NOTE | 2025-02-11 07:51 | XR_ITS ---
Examination: Retroperitoneal ultrasound, complete Technique: Multiple high resolution grayscale images of the retroperitoneum obtained, including kidneys and bladder. Exam date and time:February 11, 2025 1300 hours INDICATIONS: Onset flank pain back pain today FINDINGS: Right kidney 10.5 cm cortex 1.9 cm Left kidney 11.3 cm cortex 2.2 cm Moderate renal scar formation, no hydronephrosis No bladder mass or bladder calculi, bladder prevoid volume 114 cc IMPRESSION: Moderate bilateral renal parenchymal scar formation
--- NOTE | 2025-02-11 08:01 | ESPR_ITS ---
<Statement entered by Katy Harrington MD - 02/12/25 14:40> Patient seen and examined at bedside. Patient states that he has been feeling a lot weaker and less interactive this last few days. However does mention that he forgets to take his medications. Per patient's family, patient has experienced multiple falls however CT head was negative for any acute hemorrhage or midline shift. Pending echocardiogram, cardiology consult for EKG changes seen. Patient will be on IV ceftriaxone for his superimposed right lower lobe pneumonia and UTI. Patient will also be on insulin sliding scale for his well- controlled diabetes mellitus. Patient will also need to work with PT to see if patient will need home O2 upon discharge as patient does not use any oxygen at home. I discussed with and supervised the consultant intern physician who took care of this patient. I personally saw and examined the patient and discussed the assessment and plan with the entire medicine team, including my attending Dr. Penny, I agree with most of the assessment and plan as documented below Katy Harrington M.D. PGY-3 Disclaimer: Despite multiple revisions, due to the dictation software being used, the document bellow may not be free of grammatical errors including phonetic/typographic errors. However, this does not deter from our commitment to providing health care in the patient's best interest in mind. <Statement entered by Sharon Murcia MD - 02/11/25 18:34> Patient examined at bedside, family was present stated that he does not seem to be at his baseline and appears to be more weak. He is on 3-4 L l nasal cannula saturating at 95%. Receiving IV antibiotics azithromycin and ceftriaxone, DuoNeb treatment for COPD exacerbation and pneumonia. Patient does complain of urinary hesitancy and difficulty voiding at times. UA was positive for 3+ bacteria. Renal ultrasound showed moderate bilateral renal parenchymal scar formation, bladder prevoid volume 114 cc. Cardiology recs are pending for NSTEMI and hx of aortic dissection. Urine cultures are pending. The patient's management plan was discussed with my attending physician Dr. Penny. Sharon Murcia, PGY-2 Documentation for date of: 02/11/25 Subjective Subjective Interval history: Mr. Molina is a 70-year-old with past medical history of of type 2 diabetes, hypertension, and COPD who presented to the ED on 02/11/2025 with chief complaint of worsening shortness of breath. Admitted for acute hypoxic respiratory failure secondary to COPD exacerbation evaluation and management 02/11/2025: Patient seen and examined at bedside. pt reports desire to go home and a fear that something bad will happen to him. pt reassured that we will take care of him. Cardiology consulted given NSTEMI. pending ECHO given c/f chf. will continue to treat for presumed CAP and COPD exaccerbation. He reported having had multiple falls in the past several weeks, will have PT evaluate. CT head negative for acute hemorrhage, mass effect or midline shift. Pt reported concern that his ear drum was perforated, ears were examined, light reflex intact bilaterally and wax noted. Exam Vital Signs Temp Pulse Resp BP Pulse Ox O2 Del Method O2 Flow Rate 96.6 F L 76 17 151/91 H 96 Nasal Cannula 3 02/11/25 04:00 02/11/25 06:59 02/11/25 06:59 02/11/25 04:00 02/11/25 06:59 02/11/25 04:00 02/11/25 06:59 Narrative Exam General: Alert. Morbidly obese in on NC , tearful during interview, initially very confused but then a and o x3 Skin: Warm, dry, intact. No rash or ecchymoses. Head: Normocephalic, atraumatic. Eye: Normal conjunctiva, PERRL. Ears: earwax present and light reflex present bilaterally. non bulging non errythematous. Throat: Oral mucosa moist. No obvious lesions in oropharynx. Cardiovascular: Regular rate and rhythm, no murmur, +S1/S2. vilacious lower extremities with trace edema Respiratory:bilateral expiratory wheezes with some crackles heard at the bases Gastrointestinal: Soft, nontender, No guarding or rebound tenderness. Extremities: no cyanosis, no clubbing. Neuro: Alert and oriented x3.No focal deficits observed. Conversant, moving all extremities. No overt cerebellar signs/incoordination. Psychiatric: Cooperative, appropriate affect Objective Labs 02/12/25 04:44 02/12/25 04:44 Labs: Laboratory Results - last 24 hr 02/10/25 02/11/25 02/11/25 20:36 00:50 04:40 WBC 7.4 RBC 6.09 H Hgb 17.0 H Hct 54.0 H MCV 89 MCH 27.9 MCHC 31.5 RDW Std Deviation 51.2 H Plt Count 144 Neut % (Auto) 69 Lymph % (Auto) 19 [place] % (Auto) 11 Eos % (Auto) 0 Baso % (Auto) 0 Neut # (Auto) 5.1 Lymph # (Auto) 1.4 [place] # (Auto) 0.8 Eos # (Auto) 0.0 Baso # (Auto) 0.0 Immature Gran # (Auto) 0.02 H Absolute Nucleated RBC 0.00 Immature Gran % 0 Nucleated RBC % 0 PT 12.7 H INR 1.2 APTT 24.3 Sodium 136 Potassium 4.9 Chloride 102 Carbon Dioxide 28.7 Anion Gap 5 L BUN 28 H Creatinine 1.2 Estim Creat Clear Calc 75.3 eGFR > 60 BUN/Creatinine Ratio 23 H Glucose 100 Calculated Osmolality 277 Calcium 9.6 Corrected Calcium 9.7 Magnesium 2.3 Total Bilirubin 0.8 AST 147 H ALT 69 H Alkaline Phosphatase 64 Lactate Dehydrogenase 391 H Troponin I 0.522 H* 0.422 H* B-Natriuretic Peptide 686 H* Total Protein 7.0 Albumin 3.9 Globulin 3.1 Albumin/Globulin Ratio 1.3 Procalcitonin 0.42 Ur Collection Type Clean Catch Urine Color Yellow Urine Clarity Clear Urine pH 5.5 Ur Specific [place] 1.025 Urine Protein 2+ A Urine Glucose (UA) Negative Urine Ketones 1+ A Urine Blood 3+ A Urine Nitrite Negative Urine Bilirubin Negative Urine Urobilinogen (Auto) Negative Ur Leukocyte Esterase Negative Urine RBC 15 H Urine WBC 2 Ur Squamous Epith Cells 0 Urine Bacteria 3+ A Ur Culture Indicated? Yes Urine Opiates Screen Positive A Urine Fentanyl Screen Negative Ur Barbiturates Screen Negative U Amphetamin/Meth Scrn Negative U Benzodiazepines Scrn Negative U Cocaine Metab Screen Negative U Marijuana (THC) Screen Negative Quality Measures Quality Measures VTE prophylaxis Advance care planning discussed with:: patient Assessment & Plan Assessment Current Active Medications: Generic Name Dose Route Start Last Admin Trade Name Freq PRN Reason Stop Dose Admin Acetaminophen 650 mg 02/11/25 00:35 Acetaminophen 325 Mg Tablet PO 03/13/25 00:34 Q4HR PRN Fever >100.4 an pain 1-3 Albuterol/Ipratropium 3 ml 02/11/25 01:00 02/11/25 06:59 Albuterol/Ipratropium (Duoneb) Rt Amanda 3 Ml Nebu INH 03/13/25 00:59 Not Given Q6HRRT [facility] Aspirin 81 mg 02/11/25 09:00 Aspirin Ec 81 Mg Tabec PO 03/13/25 08:59 QDAY [facility] Atorvastatin Calcium 20 mg 02/11/25 21:00 Atorvastatin Calcium 20 Mg Tablet PO 03/13/25 20:59 HS YASMANY Dextrose 25 ml 02/10/25 23:52 Dextrose 50%-Water Inj 50 Ml Syringe IV 03/12/25 23:51 Q15MIN PRN BG 50-70 responsive npo pt Dextrose 50 ml 02/10/25 23:52 Dextrose 50%-Water Inj 50 Ml Syringe IV 03/12/25 23:51 Q15MIN PRN BG <50 OR BG <70 & pt unresponsive Glucagon 1 mg 02/10/25 23:52 Glucagon Inj 1 Mg Vial IM Q15MIN PRN BG <70, and no IV access Heparin Sodium (Porcine) 5,000 unit 02/11/25 09:00 Heparin Sod Inj 5000 Unit/Ml Vial SC 02/25/25 08:59 BID [facility] Ceftriaxone Sodium/Dextrose 1 gm in 50 mls @ 100 mls/hr 02/11/25 09:00 Rocephin/D5w 1gm Iv Premix IV 02/18/25 08:59 QDAY [facility] Azithromycin 500 mg/ Sodium 250 mls @ 250 mls/hr 02/12/25 09:00 Chloride IV 02/19/25 08:59 QDAY [facility] Insulin Human Lispro 0 unit 02/11/25 07:30 02/11/25 07:35 Insulin Lispro (Admelog) 1 Unit/0.01 Ml Unit SC 03/13/25 07:29 1 unit ACHS [facility] Administration Protocol Methylprednisolone Sodium Succinate 40 mg 02/11/25 09:00 Methylprednisolone Sod Succ 40 Mg/Ml Vial IVP 02/18/25 08:59 QDAY [facility] Morphine Sulfate 4 mg 02/11/25 00:36 Morphine Sulf Inj 4 Mg/Ml Vial IVP 02/16/25 00:35 Q4HR PRN pain 4-8 Pantoprazole Sodium 20 mg 02/11/25 09:00 Pantoprazole 20 Mg Tablet PO 03/13/25 08:59 QDAY [facility] Sodium Chloride 3 ml 02/10/25 19:59 Sodium Chloride Rt Amanda 0.9% 3 Ml Nebu INH 03/12/25 19:58 PRN PRN SOLN Sodium Chloride 3 ml 02/10/25 20:21 Sodium Chloride Rt Amanda 0.9% 3 Ml Nebu INH 03/12/25 20:20 PRN PRN SOLN Plan Mr. Molina is a 70-year-old with past medical history of of type 2 diabetes, hypertension, and COPD who presented to the ED on 02/11/2025 with chief complaint of worsening shortness of breath. Admitted for acute hypoxic respiratory i failure secondary to COPD exacerbation evaluation and management #Acute hypoxic respiratory failure secondary to #COPD exacerbation, not on home O2 #Superimposed RLL pneumonia #Pulmonary nodules #Active Tobacco Smoking (50 pack years) Patient presented with worsen shortness of breath and dry cough. O2 sat 92% 4 L nasal cannula. Denies fever, chills and recent sick contact. Respiratory respiratory likely secondary to pneumonia and possible CHF exacerbation. Concern for CHF exacerbation given the fact that patient has orthopnea, paroxysmal nocturnal dyspnea and bilateral bilateral extremity lower edema. Chest x-ray showed mild CHF with superimposed pneumonia of the right lung. Chest CTA showed COPD, pulmonary artery hypertension, significant pneumonia right lung. Multiple nodules in the right lung. Follow-up chest imaging post antibiotic treatment COVID-19 negative, influenza A and B negative -pending cocci serology -Started ceftriaxone 1gm daily -Started azithromycin 200 mg daily -DuoNeb as needed -Sputum culture and Gram stain ordered -Pain control Tylenol morphine -Supplemental O2 as needed -Maintain saturation 88-92% -Nicotine patch 21 qd #Acute CHF rule out #Hx of HLD Patient has orthopnea, paroxysmal nocturnal dyspnea and bilateral lower extremity edema, additionally crackles heard on pulmonary exam. Per med list patient takes Metoprolol, Losartan, and HCTZ 10mg qday. Patient does not recall his medication, and reports non-compliance. see #dementia BNP 686 suggestive of heart failure - Started Atorvastatin 20 mg Qday - Lasix 40 mg x1 - Cardiac echo pending - Strict intakes and output - A1C 6.6, procal wnl, TSH, lipid panel (triglycerides 259, cholesterol 200, HDL 36) - resume resouvastatin 10 mg po qd #NSTEMI? #Troponinemia - downtrending Likely NSTEMI type II secondary to demand ischemia from acute hypoxic respiratory failure. Patient endorses only right-sided pain radiating to the back, denies chest pain and palpitation. Chest CTA showed Pneumonia and COPD.ED provider contacted Dr. Isabel, low suspicion FOR NSTEMI type I or aortic dissection given the age and risk factors DM, HLD in this patient. Troponin 0.522>0.422. EKG showed sinus rhythm with rate of 91 and QTc of 473 - troponins are downtrending - Continue to monitor - Started Aspirin 81 mg daily - cardiology consulted, appreciate recs #UTI pt reports dysuria UA with 2+ protien, 1+ ketones, and 3+ blood renal US pending Urine cx pending -on ctx 1 gm q8hr #Transaminitis Likely transient to hypoperfusion form demand ischemia and po oral intake AST 147 and ALT 69 - continue to monitor for possible symptomatic liver injury - follow the plans mention above #Vdo-iwhgnij-gnhyblbli type 2 diabetes mellitus- well controlled Admission glucose 100, last A1c on 03/04/2022 is 5.6. Patient reported history of diabetes in which she is on home medication metformin 500mg BID - a1c 6.2 - d/c sliding scale #Primary hypertension Patient reports show hypertension, does not recall is on medication. Reports noncompliance to medication. On admission blood pressure 166/108 -losartan 25 po qd -metoprolol 200 mg qd #?Dementia pt reports increased forgetfullness and not taking medications. is alert and oriented x 3, but may have some mild cognitive decline. - recommend out patient follow up and MOCA #Falls #Peripheral Neuropathy #Suspect PAD given smoking hx pt reports living alone and having several unwitnessed falls - pt eval - non con Head CT- Negative for acute hemorrhage, mass effect or midline shift - resume home gabapentin 600 mg QID #chronic lower back pain - norco 5-325 q6hr prn Hospital management: Lines: peripheral IV GI prophylaxis: pantoprazole DVT prophylaxis: Heparin SC Disposition: tele for management of AHRF CODE STATUS: Full code Plan discussed with Dr. Murcia, Dr Harrington, and Dr. Hemalatha Peace MD PGY1 Attending Provider Attestation/Addendum Jeane Hernandez, , attest that I was physically present for the godwin portions of the service and evaluated the patient with the resident and I reviewed and discussed the case with the resident and agree with the resident's findings and plans of care as documented above Patient seen and evaluated this AM. Patient states that he often has b/l LE swelling. He also states that he has been feeling more short of breath and weak for the past few weeks. Patient continue to smoke daily. He is currently on 2L/Nc and states that he is unable to perform his ADLs due to the generalized fatigue. He denies any sick contacts and states that he has been falling due to frequent falls. Patient states he has constant neuropathic burning pain and he is unable to wear socks or shoes due to the pain. Will obtaint arterial US of b/l LE as he appears to have PAD. His toes appear purple in b/l feet, right worse than left, but dorsalis pedis pulses are palpable. His feet are cold, but he states that the pain is unchanged. Noted to have ST depressions in II, III, AvF on EKG with reciprocal changes in precordial leads. Patient denies any chest pain. Will consult cardiology for further recommendations. Patient currently on steroids and abx for acute COPD exacerbation. Will continue wt breathing treatments. Paitent will need PT due to frequent falls.
[2025-02-11] MEDS: ASPIRIN EC 81 MG TABEC PO (08:21)
[2025-02-11] MEDS: PANTOPRAZOLE 20 MG TABLET PO (08:21)
[2025-02-11] MEDS: HEPARIN SOD INJ 5000 UNIT/ML VIAL SC (08:22)
[2025-02-11] MEDS: cefTRIAXone/D5w 1gm IV premix 1 GM/50 ML BAG IV (08:23)
[2025-02-11 08:39] LABS: Basophils # (Auto) 0.0 Thou/mm3 (0.0-0.2); Basophils % (Auto) 0 % (0-2.5); Eosinophils # (Auto) 0.0 Thou/mm3 (0.0-0.5); Eosinophils % (Auto) 0 % (0-10); Hematocrit 54.2 % (41.0-53.0); Hemoglobin 17.1 g/dL (13.5-16.0); Immature Granulocytes Auto 0.01 Thou/mm3 (0.00-0.00); Lymphocytes # (Auto) 0.6 Thou/mm3 (1.0-4.8); Lymphocytes % (Auto) 15 % (10-50); Mean Corpuscular HGB Conc 31.5 g/dl (31.0-37.0); Mean Corpuscular Hemoglobin 28.0 pg (25.0-35.0); Mean Corpuscular Volume 89 fL (80-100); Monocytes # (Auto) 0.2 Thou/mm3 (0.0-0.8); Monocytes % (Auto) 4 % (0-12); Neutrophils # (Auto) 3.3 Thou/mm3 (1.8-7.7); Neutrophils % (Auto) 81 % (37-80); Nucleated Red Blood Cell # 0.00 Thou/mm3 (0.00-0.00); Nucleated Red Blood Cell % 0 /100 WBC (0); Platelet Count 151 Thou/mm3 (140-440); RDW Standard Deviation 50.7 fL (35.1-43.9); Red Blood Count 6.11 Miln/mm3 (4.50-5.90); White Blood Count 4.0 Thou/mm3 (3.8-10.6)
[2025-02-11] MEDS: HYDROcodone/APAP 5/325 TABLET 1 TAB PO ×2 (09:39→15:26)
--- NOTE | 2025-02-11 09:39 | PC.SS ---
Patient Joel Molina is a 70 Year old male admitted for AHRF/COPD Exacerbation. SS met with patient at bedside to discuss discharge plan. Patient lives home alone. Patient reports he does not utilize any source of DME to assist with ambulation. Patient is able to complete all ADL's independently. Surrogate decision maker is his sister, Anne Hylton [phone]. Choice of pharmacy is [facility]. PCP is Dhiraj Miranda. At time of discharge family will provide transportation. Discharge plan: Home Next of kin: Sister, Anne Hylton
[2025-02-11 09:44] LABS: Glucose Estimated Average 131 mg/dL (80-131); Hemoglobin A1C 6.2 % Hgb (4.8-6.0)
--- NOTE | 2025-02-11 10:04 | PC.SS ---
SS follow up note; Patient is on IV ABX and IV Steroids. Patient will discharge back home when medically cleared.
--- NOTE | 2025-02-11 10:19 | XR_ITS ---
Examination: CT brain head without contrast. 2-D sagittal coronal reconstructions Date and time of exam:February 11, 2025, 1055 hours INDICATIONS: Frequent falls today CTDI: vol (mGy):55.3 DLP: (mGycm):1136 Technique: Multiple CT axial sections of the brain have been obtained, 5 mm slice thickness. Contrast has not been administered. 2-D sagittal, coronal reconstructions have been obtained Low dose protocols were performed. One or more of the following dose reduction techniques were used; automated exposure control, adjustment of the mA and/or KV according to patient size, use of iterative reconstruction technique. Findings: No significant ventricular enlargement. Intra-axial or extra-axial hemorrhage density is not seen. No mass effect or midline shift Basal cisterns are not remarkable. Fourth ventricle is midline. Cranial vault intact. Impression: Negative for acute hemorrhage, mass effect or midline shift
--- NOTE | 2025-02-11 10:25 | PD.DPN ---
Documentation for date of: 02/11/25 Pronouncement Note Additional Data Attending physician: Jeane Penny DO
--- NOTE | 2025-02-11 10:26 | PD.DDS ---
Documentation for date of: 02/11/25 Summary Date and Time Date of admission: 02/10/25 23:28 Additional Data Attending physician: Jeane Penny DO Visit Providers Provider Primary care physician: Physician No Primary/Family Consults: 02/11/25 10:13 Referral Physical Therapy Routine Comment: Physician Instructions: 02/11/25 10:17 Consult to Cardiology Routine Comment: Consulting Provider: Lanie Shepard Instructions: nstemi Discharge Plan Plan Patient condition on transfer: Stable Prescriptions/Referrals Prescriptions/Med Rec: No Action multivitamin Tablet 1 tab PO QDAY losartan-hydrochlorothiazide 100-25 mg tablet 1 tab PO QDAY dutasteride 0.5 mg capsule 0.5 mg PO QDAY metformin 500 mg tablet 500 mg PO BID gabapentin 600 mg tablet 600 mg PO QID omeprazole 20 mg capsule,delayed release(DR/EC) 20 mg PO DAILY aspirin 81 mg Tablet 81 mg PO QDAY Stiolto Respimat 2.5-2.5 mcg/actuation Mist 2 puff INHALATION Q24H metoprolol succinate 100 mg tablet extended release 24 hr 100 mg PO DAILY Patient Comments: TAKE 1 TABLET BY MOUTH DAILY rosuvastatin 10 mg tablet 10 mg PO DAILY Patient Comments: TAKE 1 TABLET BY MOUTH DAILY losartan 25 mg tablet 25 mg PO DAILY Patient Comments: TAKE 1 TABLET BY MOUTH DAILY hydrochlorothiazide 12.5 mg capsule 12.5 mg PO DAILY Patient Comments: TAKE 1 CAPSULE BY MOUTH DAILY IN THE MORNING Referrals: No Primary/Family,Physician [Primary Care Provider] Patient/Caregiver Discharge Instructions Print Language: Argentine
[2025-02-11] MEDS: LOSARTAN POTASSIUM 25 MG TABLET PO (10:30)
[2025-02-11 11:28] LABS: Influenza A Ag Negative; Influenza B Ag Negative
[2025-02-11] MEDS: METOPROLOL SUCCINATE XL 25 MG TABCR 100 MG PO (11:39)
[2025-02-11 14:59] LABS: Sed Rate (ESR) 95 mm/hr (0-20)
[2025-02-11 15:04] LABS: Cocci Serology, IgM Negative (Negative)
[2025-02-11 15:22] LABS: Alanine Aminotransferase 107 U/L (10-49); Albumin, Serum 4.0 gm/dL (3.4-4.8); Albumin/Globulin Ratio 1.3 (1.2-2.2); Alkaline Phosphatase 68 U/L (46-116); Anion Gap 6 (7-16); Aspartate Amino Transferase 163 U/L (0-34); BUN/Creatinine Ratio 28 Ratio (12-20); Bilirubin,Total 0.5 mg/dL (0.3-1.2); Blood Urea Nitrogen 34 mg/dL (9-23); Calcium 9.5 mg/dL (8.3-10.6); Calcium (Corrected) 9.5 mg/dL (8.5-10.1); Carbon Dioxide 27.8 mMol/L (20.0-31.0); Cardiac Risk Estimate 8.1 RATIO (4.0-6.7); Chloride 104 mMol/L (98-107); Cholesterol 146 mg/dL (132-200); Creatinine (Component) 1.2 mg/dL (0.6-1.3); Estimated Creatinine Clearance 73.5 mL/min (>60); Globulin 3.0 gm/dL (2.3-3.5); Glucose 234 mg/dL (74-106); HDL Cholesterol 18 mg/dL (40-60); LDL Cholesterol,Calculated 86 mg/dL (0-130); Magnesium 2.6 mg/dL (1.6-2.6); Osmolality,Calculated 291 (275-295); Phosphorous 4.2 mg/dL (2.4-5.1); Potassium 4.2 mMol/L (3.4-5.1); Sodium 138 mMol/L (136-145); Thyroid Stimulating Hormone 0.45 uIU/mL (0.55-4.78); Total Protein 7.0 gm/dL (5.7-8.2); Triglycerides 212 mg/dL (30-150); eGFR > 60 See Note
[2025-02-11] MEDS: NICOTINE PATCH 21 MG/24 HR PATCH.TD24 TOP (15:26)
[2025-02-11 15:32] LABS: C-Reactive Protein 13.0 mg/dL (0.0-0.9)
[2025-02-11] MEDS: GABAPENTIN 300 MG CAPSULE 600 MG PO ×2 (17:23→20:25)
--- NOTE | 2025-02-11 18:36 | XR_ITS ---
Examination: Arterial duplex lower extremity study. Date and time of exam: February 11, 2025, 2045 hrs. Foot pain and numbness several years Findings: Duplex sonographic imaging of the lower extremity arteries using B-mode/Dennis scale imaging and Doppler spectral analysis and color flow. Ankle brachial indices have been recorded. Right common femoral artery demonstrates biphasic flow. Right superficial femoral artery demonstrates biphasic flow. Right popliteal artery demonstrates biphasic flow. Right posterior tibial artery demonstrated biphasic flow. Right ankle/brachial index not performed secondary to IV Left common femoral artery demonstrates biphasic flow. Left superficial femoral artery demonstrates biphasic flow. Left popliteal artery demonstrates biphasic flow. Left posterior tibial artery demonstrated biphasic flow. Left ankle/brachial index is 1.2. Impression: Negative for significant obstructive arterial disease
--- NOTE | 2025-02-11 18:59 | ESCONSULT_ITS ---
<Statement entered by Lanie Shepard MD - 02/12/25 18:34> I personally examined evaluated this patient who presented to the hospital shortness of breath congestive heart failure symptoms improved with diuretic continues to feel little better but had troponin elevation concerned about CAD nonspecific ST depression precordial leads as well hence recommending coronary angiogram cardiac evaluation personally examined patient evaluated with resident physician PGY 3 Dr. Leighton Aviles will schedule the patient for coronary angiogram tomorrow morning. Risk benefits alternatives explained we will perform cholangiogram order cardiac echo in the morning. HPI Data of Consult Requesting Physician: Jeane Penny DO Admitting Provider: Brent Osorio MD Attending Provider: Jeane Penny DO Primary Care Provider: Physician No Primary/Family Consult Narrative Reason for consult: EKG changes, elevated troponin History of present illness: HPI:A 70-year-old male patient with past medical history of type 2 diabetes mellitus, hypertension, COPD not on home oxygen, hyperlipidemia, heavy smoker, came to the ED due to progressive shortness of breath and chest pressure for the past 3 months. Patient reported that he has been having shortness of breath for the past few months however for the past few weeks his condition continued to worsen. He reported that he has some chest pressure also generalized with no specific location. Not related to exertion. He reported that he feels short of breath especially when he lay flat or in his side and he has to sleep in semisitting position. He also reported that he has some episodes of waking up in the middle of the night short of breath. He denied any lower extremity edema however he reported intermittent lower extremity pain during prolonged walking. Patient denied any palpitation however he reported multiple episodes of falls. Patient has not visited any speaker mounter in the past. Home medications: Aspirin, dutasteride, gabapentin, hydrochlorothiazide, losartan, metformin, metoprolol 100 mg, omeprazole, rosuvastatin, Stiolto Respimat ED course:At the ED patient was found to have systolic blood pressure of 166/108, pulse of 88, respiratory rate of 16, O2 saturation was 96 on 1 L of oxygen. His labs showed troponin of 0.522, BNP of 686, mild elevation of AST and ALT, x-ray showed mild CHF with superimposed pneumonia in the right base. Chest CT angio was done to rule out pulmonary embolism which came back negative however it showed COPD, significant pneumonia, multiple pulmonary nodules were noticed in previous CT scan however not compared. EKG showed diffuse ST segment depression. PMH:As above Social hx: Alcohol: Stopped drinking 25 years ago Tobacco: 1 pack/day for the past 50 years, stopped last week Illicit drugs: Denied Allergies: No known allergies cc:: cc: Jeane Penny, DO Exam Vital Signs Temp Pulse Resp BP Pulse Ox O2 Del Method O2 Flow Rate 97.9 F 63 18 152/84 H 98 Nasal Cannula 3 02/11/25 16:00 02/11/25 16:00 02/11/25 16:00 02/11/25 16:00 02/11/25 16:00 02/11/25 16:00 02/11/25 16:00 Narrative Exam GEN: AOx3, however poor historian, on nasal cannula, able to speak full sentences HEENT: NC/AC, oral mucosa moist, neck supple CVS: RRR, S1-S2 present, no murmurs appreciated RESP: Bilateral basal crepitations, bilateral rhonchi GI: soft,non distended, non tender, NBS MSK: Chronic ischemic changes in the lower extremities, shiny skin, loss of hair, peripheral redness, absence of peripheral pulses bilaterally the lower extremities SKIN: warm and dry CULINARY WORKER: CN II-XII and Sensation grossly intact. Results Labs 02/11/25 08:15 02/11/25 14:46 Labs: Short CBC 02/10/25 02/11/25 Range/Units 20:36 08:15 WBC 7.4 4.0 D (3.8-10.6) Thou/mm3 Hgb 17.0 H 17.1 H (13.5-16.0) g/dL Hct 54.0 H 54.2 H (41.0-53.0) % Plt Count 144 151 (140-440) Thou/mm3 BMP 02/10/25 02/11/25 20:36 14:46 Sodium 136 138 Potassium 4.9 4.2 D Chloride 102 104 Carbon Dioxide 28.7 27.8 BUN 28 H 34 H Creatinine 1.2 1.2 Glucose 100 234 H D Calcium 9.6 9.5 Cardiac Enzymes 02/10/25 02/11/25 02/11/25 Range/Units 20:36 00:50 14:46 Troponin I 0.522 H* 0.422 H* Cancelled (0.0-0.045) ng/mL Liver Function 02/10/25 02/11/25 Range/Units 20:36 14:46 Total Bilirubin 0.8 0.5 (0.3-1.2) mg/dL AST 147 H 163 H (0-34) U/L ALT 69 H 107 H (10-49) U/L Alkaline Phosphatase 64 68 (46-116) U/L Albumin 3.9 4.0 (3.4-4.8) gm/dL Urine 02/11/25 Range/Units 04:40 Urine Color Yellow (Lt Yel-Yel) Urine Clarity Clear (Clear/Hazy) Urine pH 5.5 (5.0-7.0) Ur Specific [place] 1.025 (1.001-1.035) Urine Protein 2+ A (Neg - Trace) Urine Glucose (UA) Negative (Negative) Quality Measures Quality Measures VTE prophylaxis Advance care planning discussed with:: patient Medications Home Medications and Allergies Home Medications ?Medication ?Instructions ?Recorded ?Confirmed ?Type aspirin 81 mg tablet 81 mg PO QDAY 10/03/2002/11 History gabapentin 600 mg tablet 600 mg PO QID 10/03/2002/11 History metformin 500 mg tablet 500 mg PO BID 10/03/2002/11 History omeprazole 20 mg capsule,delayed 20 mg PO DAILY 02/11/25 History release tiotropium 2.5 mcg-olodaterol 2.5 2 puff inhalation Q2 4H 10/27/20 02/11/25 History mcg/actuation mist for inhalation (Stiolto Respimat) dutasteride 0.5 mg capsule 0.5 mg PO QDAY 03/20/24 History losartan 100 1 tab PO QDAY 03/20/2402/11 History mg-hydrochlorothiazide 25 mg tablet multivitamin 1 tab PO QDAY 03/20/2402/11 History hydrochlorothiazide 12.5 mg capsule 12.5 mg PO DAILY 0 02/11/25 02/11/25 History losartan 25 mg tablet 25 mg PO DAILY 02/11/25/02/07 History metoprolol succinate 100 mg 100 mg PO DAILY 02/11/25 0 02/11/25 History tablet,extended release 24 hr rosuvastatin 10 mg tablet 10 mg PO DAILY 02/11/25 09/2 02/07 History Allergies Allergy/AdvReac Type Severity Reaction Status Date / Time No Known Drug Allergies Allergy Verified 02/10/25 20:00 Visit Medications Acetaminophen (Acetaminophen 325 Mg Tablet) 650 mg PO Q4HR PRN PRN Reason: Fever >100.4 an pain 1-3 Stop: 03/13/25 00:34 Hydrocodone Bitart/Acetaminophen (Hydrocodone/Apap 5/325 Tablet) 1 tab PO Q6HR PRN PRN Reason: Pain4-7 Stop: 02/16/25 09:03 Last Admin: 02/11/25 15:26 Dose: 1 tab Albuterol/Ipratropium (Albuterol/Ipratropium (Duoneb) Rt Amanda 3 Ml Nebu) 3 ml INH Q6HRRT [place] Stop: 03/13/25 00:59 Last Admin: 02/11/25 13:15 Dose: Not Given Aspirin (Aspirin Ec 81 Mg Tabec) 81 mg PO QDAY [place] Stop: 03/13/25 08:59 Last Admin: 02/11/25 08:21 Dose: 81 mg Atorvastatin Calcium (Atorvastatin Calcium 20 Mg Tablet) 20 mg PO HS [place] Stop: 03/13/25 20:59 Gabapentin (Gabapentin 300 Mg Capsule) 600 mg PO QID [place] Stop: 03/13/25 16:59 Last Admin: 02/11/25 17:23 Dose: 600 mg Ceftriaxone Sodium/Dextrose (Rocephin/D5w 1gm Iv Premix) 1 gm in 50 mls @ 100 mls/hr IV QDAY [place] Stop: 02/18/25 08:59 Last Admin: 02/11/25 08:23 Dose: 100 mls/hr Azithromycin 500 mg/ Sodium (Chloride) 250 mls @ 250 mls/hr IV QDAY [place] Stop: 02/19/25 08:59 Heparin Sodium/Dextrose (Heparin In D5w Ivpb) 25,000 unit in 250 mls @ 9.969 mls/hr IV .Q24H [place]; Protocol Stop: 02/25/25 18:29 Losartan Potassium (Losartan Potassium 25 Mg Tablet) 25 mg PO DAILY [place] Stop: 03/13/25 10:29 Last Admin: 02/11/25 10:30 Dose: 25 mg Methylprednisolone Sodium Succinate (Methylprednisolone Sod Succ 40 Mg/Ml Vial) 40 mg IVP QDAY [place] Stop: 02/18/25 08:59 Last Admin: 02/11/25 08:22 Dose: 40 mg Metoprolol Succinate (Metoprolol Succinate Xl 25 Mg Tabcr) 100 mg PO DAILY [place] Stop: 03/13/25 10:29 Last Admin: 02/11/25 11:39 Dose: 100 mg Nicotine (Nicotine Patch 21 Mg/24 Hr Patch.Td24) 21 mg TOP QDAY [place] Stop: 03/13/25 14:14 Last Admin: 02/11/25 15:26 Dose: 21 mg Pantoprazole Sodium (Pantoprazole 20 Mg Tablet) 20 mg PO QDAY [place] Stop: 03/13/25 08:59 Last Admin: 02/11/25 08:21 Dose: 20 mg Sodium Chloride (Sodium Chloride Rt Amanda 0.9% 3 Ml Nebu) 3 ml INH PRN PRN PRN Reason: SOLN Stop: 03/12/25 20:20 Discontinued Medications Albuterol (Albuterol Rt 2.5 Mg/0.5 Ml Nebu) 2.5 mg INH X1 ONE Stop: 02/10/25 20:00 Last Admin: 02/10/25 20:33 Dose: 2.5 mg Albuterol (Albuterol Rt 2.5 Mg/0.5 Ml Nebu) 7.5 mg INH X1 ONE Stop: 02/10/25 20:22 Last Admin: 02/10/25 20:33 Dose: 7.5 mg Bumetanide (Bumetanide Inj 0.25 Mg/Ml Vial 4 Ml) 1 mg IVP QDAY [facility] Stop: 03/13/25 08:59 Dextrose (Dextrose 50%-Water Inj 50 Ml Syringe) 25 ml IV Q15MIN PRN PRN Reason: BG 50-70 responsive npo pt Stop: 03/12/25 23:51 Dextrose (Dextrose 50%-Water Inj 50 Ml Syringe) 50 ml IV Q15MIN PRN PRN Reason: BG <50 OR BG <70 & pt unresponsive Stop: 03/12/25 23:51 Furosemide (Furosemide Inj 10 Mg/Ml Vial 2 Ml) 20 mg IVP X1 ONE Stop: 02/11/25 02:56 Last Admin: 02/11/25 04:00 Dose: 20 mg Furosemide (Furosemide Inj 10 Mg/Ml 4ml Vial) 40 mg IVP X1 ONE Stop: 02/11/25 18:31 Glucagon (Glucagon Inj 1 Mg Vial) 1 mg IM Q15MIN PRN PRN Reason: BG <70, and no IV access Heparin Sodium (Porcine) (Heparin Sod Inj 5000 Unit/Ml Vial) 5,000 unit SC BID [facility] Stop: 02/25/25 08:59 Last Admin: 02/11/25 08:22 Dose: 5,000 unit Heparin Sodium (Porcine) (Heparin Sod Inj 5000 Unit/Ml Vial) 4,000 unit IV X1 ONE; Protocol Stop: 02/11/25 18:31 Ceftriaxone Sodium/Dextrose (Rocephin/D5w 1gm Iv Premix) 1 gm in 50 mls @ 100 mls/hr IV X1 ONE Stop: 02/10/25 22:28 Last Infusion: 02/10/25 22:45 Dose: Infused Azithromycin 500 mg/ Sodium (Chloride) 250 mls @ 250 mls/hr IV QDAY [facility] Stop: 02/18/25 08:59 Azithromycin 500 mg/ Sodium (Chloride) 250 mls @ 250 mls/hr IV X1 ONE Stop: 02/11/25 01:14 Last Infusion: 02/11/25 02:20 Dose: Infused Insulin Human Lispro (Insulin Lispro (Admelog) 1 Unit/0.01 Ml Unit) 0 unit SC ACHS [facility]; Protocol Stop: 03/13/25 07:29 Last Admin: 02/11/25 07:35 Dose: 1 unit Methylprednisolone Sodium Succinate (Methylprednisolone Sod Succ 62.5 Mg/Ml 2ml Vial) 125 mg IVP X1 ONE Stop: 02/10/25 20:15 Last Admin: 02/10/25 20:31 Dose: 125 mg Morphine Sulfate (Morphine Sulf Inj 4 Mg/Ml Vial) 4 mg IVP Q4HR PRN PRN Reason: pain 4-8 Stop: 02/16/25 00:35 Morphine Sulfate (Morphine Sulf Inj 4 Mg/Ml Vial) 4 mg IVP Q4HR PRN PRN Reason: pain 8-10 Stop: 02/16/25 00:35 Sodium Chloride (Sodium Chloride Rt 10% 15 Ml Nebu) 5 ml INH X1 ONE Stop: 02/10/25 23:40 Last Admin: 02/11/25 04:14 Dose: 5 ml Assessment & Plan Plan Summary:A 70-year-old male patient with past medical history of type 2 diabetes mellitus, hypertension, COPD not on home oxygen, hyperlipidemia, heavy smoker, came to the ED due to progressive shortness of breath and chest pressure for the past 3 months. Patient reported that he has been having shortness of breath for the past few months however for the past few weeks his condition continued to worsen. Patient was admitted for COPD exacerbation and cardiology team was consulted for possible acute coronary syndrome versus new onset CHF. #Acute coronary syndrome #Acute congestive heart failure rule out #Non-STEMI type I versus type II #Pericarditis less likely #Peripheral arterial disease Patient is a heavy smoker for 50 years, presented with shortness of breath and chest pressure for few months, patient also has orthopnea. Patient also reported intermittent claudication. Physical examination showed chronic ischemic changes in his lower extremities. Given the symptoms noted to have ST depression throughout most of the EKG leads, which most likely indicate either multivessel disease versus pericarditis. roponin on presentation was 0.522, down trended to 0.422 BNP was noted to be 686, chest x-ray showed pulmonary hypertension and vascular congestion. Plan ? Keep patient n.p.o. after midnight for Angiocath tomorrow ? Start the patient on heparin drip ACS protocol ? Continue the patient on aspirin 81 mg p.o. daily ? Start the patient on atorvastatin 80 mg p.o. daily ? Urgent echocardiogram ? Given dose of Lasix 40 mg x 1 for the patient to tolerate the angiogram and to relieve his orthopnea ? ESR, CRP, lipid panel ordered, follow-up on the results #Abdominal aortic aneurysm, infrarenal AAA, transverse dimension 3.7 x 3.9 cm Follow up o/p #COPD exacerbation Patient on azithromycin, ceftriaxone, methylprednisolone breathing treatments and was given 1 dose of Lasix by the primary team 20 mg #Diabetes mellitus type 2 A1c is 6.2 #Hyperlipidemia Lipid panel was ordered #History of hypertension Patient is on metoprolol succinate 100 mg p.o. daily Thank you for your consultation please do not hesitate to reach Franky any question or concern - Patient's plan and care discussed with my attending, Dr. Devyn Blackwood MD Internal Medicine PGY-3
[2025-02-11] MEDS: FUROSEMIDE INJ 10 MG/ML 4ML VIAL 40 MG IVP (19:01)
--- NOTE | 2025-02-11 19:35 | PC.RT ---
Patient unable to produce any sputum, MD aware.
[2025-02-11 20:20] LABS: Partial Thromboplastin Time 25.2 Seconds (22.0-36.0)
[2025-02-11] MEDS: ATORVASTATIN CALCIUM 20 MG TABLET 80 MG PO (20:25)
[2025-02-11] MEDS: HEPARIN SOD INJ 5000 UNIT/ML VIAL 4000 UNIT IV (20:56)
[2025-02-11] MEDS: Heparin/D5w 25K 250 ML Ivpb 25,000 UNIT/250 ML BAG 9.969 UNIT IV (20:57)
[2025-02-12] VITALS (20 sets, daily range): BP systolic 139–156; BP diastolic 82–99; PULSE 58–90; RESP 13–84; TEMP 36.1–36.6; O2SAT 91–100; BMI 34.0
[2025-02-12] MEDS: HYDROcodone/APAP 5/325 TABLET 1 TAB PO ×4 (00:31→14:53)
[2025-02-12] MEDS: ALBUTEROL/IPRATROPIUM (Duoneb) RT SOL 3 ML NEBU INH ×3 (01:39→18:17)
[2025-02-12 03:38] LABS: Partial Thromboplastin Time 33.1 Seconds (22.0-36.0)
[2025-02-12] MEDS: HEPARIN SOD INJ 5000 UNIT/ML VIAL 4000 UNIT IVP (04:03)
[2025-02-12] MEDS: GABAPENTIN 300 MG CAPSULE 600 MG PO ×4 (05:16→20:30)
[2025-02-12 05:45] LABS: Basophils # (Auto) 0.0 Thou/mm3 (0.0-0.2); Basophils % (Auto) 0 % (0-2.5); Eosinophils # (Auto) 0.0 Thou/mm3 (0.0-0.5); Eosinophils % (Auto) 0 % (0-10); Hematocrit 51.9 % (41.0-53.0); Hemoglobin 16.6 g/dL (13.5-16.0); Immature Granulocytes Auto 0.03 Thou/mm3 (0.00-0.00); Lymphocytes # (Auto) 1.3 Thou/mm3 (1.0-4.8); Lymphocytes % (Auto) 12 % (10-50); Mean Corpuscular HGB Conc 32.0 g/dl (31.0-37.0); Mean Corpuscular Hemoglobin 28.0 pg (25.0-35.0); Mean Corpuscular Volume 88 fL (80-100); Monocytes # (Auto) 0.8 Thou/mm3 (0.0-0.8); Monocytes % (Auto) 7 % (0-12); Neutrophils # (Auto) 9.0 Thou/mm3 (1.8-7.7); Neutrophils % (Auto) 81 % (37-80); Nucleated Red Blood Cell # 0.00 Thou/mm3 (0.00-0.00); Nucleated Red Blood Cell % 0 /100 WBC (0); Platelet Count 195 Thou/mm3 (140-440); RDW Standard Deviation 49.0 fL (35.1-43.9); Red Blood Count 5.93 Miln/mm3 (4.50-5.90); White Blood Count 11.1 Thou/mm3 (3.8-10.6)
[2025-02-12 06:08] LABS: Alanine Aminotransferase 94 U/L (10-49); Albumin, Serum 3.8 gm/dL (3.4-4.8); Albumin/Globulin Ratio 1.4 (1.2-2.2); Alkaline Phosphatase 64 U/L (46-116); Anion Gap 8 (7-16); Aspartate Amino Transferase 96 U/L (0-34); BUN/Creatinine Ratio 26 Ratio (12-20); Bilirubin,Total 0.5 mg/dL (0.3-1.2); Blood Urea Nitrogen 29 mg/dL (9-23); Calcium 9.6 mg/dL (8.3-10.6); Calcium (Corrected) 9.8 mg/dL (8.5-10.1); Carbon Dioxide 28.1 mMol/L (20.0-31.0); Chloride 104 mMol/L (98-107); Creatinine (Component) 1.1 mg/dL (0.6-1.3); Estimated Creatinine Clearance 80.2 mL/min (>60); Globulin 2.8 gm/dL (2.3-3.5); Glucose 137 mg/dL (74-106); Magnesium 2.4 mg/dL (1.6-2.6); Osmolality,Calculated 287 (275-295); Phosphorous 4.0 mg/dL (2.4-5.1); Potassium 4.2 mMol/L (3.4-5.1); Sodium 140 mMol/L (136-145); Total Protein 6.6 gm/dL (5.7-8.2); eGFR > 60 See Note
--- NOTE | 2025-02-12 07:43 | ESPR_ITS ---
<Statement entered by Sharon Murcia MD - 02/12/25 16:45> Patient seen and examined at bedside. Patient continues to be on nasal cannula. He was taken for angiogram today. Patient found to have normal nonobstructive epicardial coronary arteries, mild plaque in the LAD and circumflex arteries. Has Cor pulmonale, right ventricular enlargement, and elevated PA pressure of 45 mmHg. Plan to discharge patient with diuretic therapy and home oxygen 2 liters per minute for possibly group 3 pulmonary hypertension secondary to COPD and lung disease. Continues to have LE leg pain. There is concern for PAD due to cold extremities and discoloratoin. However, BLE arterial US was negative for PAD. Will resume continue home dose gabapentin and start IV dilaudid 0.5mg q4hr PRN for pain. The patient's management plan was discussed with my attending physician Dr. Penny. Sharon Murcia, PGY-2 <Statement entered by Katy Harrington MD - 02/12/25 15:32> Patient seen and examined at bedside. Patient continues to be on nasal cannula. Patient was taken to cardiac cath today with cardiology, and found to have a negative workup for CAD however does have cor pulmonale, right ventricular enlargement, and elevated PA pressure of 45 mmHg. patient most likely will need diuretics and home O2 to address patient's possible group 3 pulmonary hypertension secondary to his obstructive lung disease. Patient will also need a cardiac echocardiogram in 2 to 3 months to assess his right heart function while on oxygen therapy. Patient does not appear to have left heart failure or disease, and has a normal ejection fraction 55% and a mild plaque in the LAD and circumflex arteries. Physical therapy also has seen patient, and recommends rehab placement. Will start patient on daily Lasix 40 mg daily and see if patient tolerates. Will also start patient on patient's chronic pain meds including gabapentin and hydromorphone. Patient most likely can be discharged in 24 to 48 hours to rehab. I discussed with and supervised the international trade specialist physician who took care of this patient. I personally saw and examined the patient and discussed the assessment and plan with the entire medicine team, including my attending Dr. Penny, I agree with most of the assessment and plan as documented below Katy Harrington M.D. PGY-3 Disclaimer: Despite multiple revisions, due to the dictation software being used, the document bellow may not be free of grammatical errors including phonetic/typographic errors. However, this does not deter from our commitment to providing health care in the patient's best interest in mind. Documentation for date of: 02/12/25 Subjective Subjective Interval history: Mr. Molina is a 70-year-old with past medical history of of type 2 diabetes, hypertension, and COPD who presented to the ED on 02/11/2025 with chief complaint of worsening shortness of breath. Admitted for acute hypoxic respiratory failure secondary to COPD exacerbation evaluation and management 02/11/2025: Patient seen and examined at bedside. pt reports desire to go home and a fear that something bad will happen to him. pt reassured that we will take care of him. Cardiology consulted given NSTEMI. pending ECHO given c/f chf. will continue to treat for presumed CAP and COPD exaccerbation. He reported having had multiple falls in the past several weeks, will have PT evaluate. CT head negative for acute hemorrhage, mass effect or midline shift. Pt reported concern that his ear drum was perforated, ears were examined, light reflex intact bilaterally and wax noted. 02/12/2025: Patient seen and examined at bedside. No new concerns. pt taken for cardiac cath today, found to have negative study for pulmonary embolism and a negative workup for coronary artery disease. The patient does have what appears to be cor pulmonale, right ventricular enlargement, and PA pressure elevation. Recommend discharge the patient home on diuretic therapy and home oxygen 2 liters per minute for possibly group 3 pulmonary hypertension secondary to COPD and lung disease. Exam Vital Signs Temp Pulse Resp BP Pulse Ox O2 Del Method O2 Flow Rate 97.4 F 61 18 139/82 H 98 Nasal Cannula 3 02/12/25 04:00 02/12/25 06:40 02/12/25 06:40 02/12/25 04:00 02/12/25 06:40 02/12/25 04:00 02/12/25 06:40 Narrative Exam General: Alert. Morbidly obese in on NC , a and o x3 Skin: Warm, dry, intact. No rash or ecchymoses. Head: Normocephalic, atraumatic. Eye: Normal conjunctiva, PERRL. Throat: Oral mucosa moist. No obvious lesions in oropharynx. Cardiovascular: Regular rate and rhythm, no murmur, +S1/S2. vilacious lower extremities with trace edema Respiratory:bilateral expiratory wheezes with some crackles heard at the bases Gastrointestinal: Soft, nontender, No guarding or rebound tenderness. Extremities:Chronic ischemic changes in the lower extremities, shiny skin, loss of hair, peripheral redness, absence of peripheral pulses bilaterally the lower extremities Neuro: Alert and oriented x3.No focal deficits observed. Conversant, moving all extremities. No overt cerebellar signs/incoordination. Psychiatric: Cooperative, appropriate affect Objective Labs 02/13/25 04:42 02/13/25 04:42 Labs: Laboratory Results - last 24 hr 02/11/25 02/11/25 02/11/25 08:15 09:50 14:46 WBC 4.0 D RBC 6.11 H Hgb 17.1 H Hct 54.2 H MCV 89 MCH 28.0 MCHC 31.5 RDW Std Deviation 50.7 H Plt Count 151 Neut % (Auto) 81 H Lymph % (Auto) 15 [place] % (Auto) 4 Eos % (Auto) 0 Baso % (Auto) 0 Neut # (Auto) 3.3 Lymph # (Auto) 0.6 L [place] # (Auto) 0.2 Eos # (Auto) 0.0 Baso # (Auto) 0.0 Immature Gran # (Auto) 0.01 H Absolute Nucleated RBC 0.00 Immature Gran % 0 Nucleated RBC % 0 ESR 95 H APTT Sodium 138 Potassium 4.2 D Chloride 104 Carbon Dioxide 27.8 Anion Gap 6 L BUN 34 H Creatinine 1.2 Estim Creat Clear Calc 73.5 eGFR > 60 BUN/Creatinine Ratio 28 H Glucose [address] Glu mg/dL 131 Hemoglobin A1c 6.2 H Calculated Osmolality 291 Calcium 9.5 Corrected Calcium 9.5 Phosphorus 4.2 Magnesium 2.6 Total Bilirubin 0.5 AST 163 H ALT 107 H Alkaline Phosphatase 68 Troponin I Cancelled C-Reactive Prot, Quant 13.0 H Total Protein 7.0 Albumin 4.0 Globulin 3.0 Albumin/Globulin Ratio 1.3 Triglycerides 212 H Cholesterol 146 LDL Cholesterol, Calc 86 HDL Cholesterol 18 L Cholesterol/HDL Ratio 8.1 H TSH 0.45 L Coccidioides IgM Ab Negative Influenza A (Rapid) Negative Influenza B (Rapid) Negative 02/11/25 02/12/25 02/12/25 19:51 03:10 04:44 WBC 11.1 H D RBC 5.93 H Hgb 16.6 H Hct 51.9 MCV 88 MCH 28.0 MCHC 32.0 RDW Std Deviation 49.0 H Plt Count 195 D Neut % (Auto) 81 H Lymph % (Auto) 12 [place] % (Auto) 7 Eos % (Auto) 0 Baso % (Auto) 0 Neut # (Auto) 9.0 H Lymph # (Auto) 1.3 [place] # (Auto) 0.8 Eos # (Auto) 0.0 Baso # (Auto) 0.0 Immature Gran # (Auto) 0.03 H Absolute Nucleated RBC 0.00 Immature Gran % 0 Nucleated RBC % 0 ESR APTT 25.2 33.1 Sodium 140 Potassium 4.2 Chloride 104 Carbon Dioxide 28.1 Anion Gap 8 BUN 29 H Creatinine 1.1 Estim Creat Clear Calc 80.2 eGFR > 60 BUN/Creatinine Ratio 26 H Glucose [address] Glu mg/dL Hemoglobin A1c Calculated Osmolality 287 Calcium 9.6 Corrected Calcium 9.8 Phosphorus 4.0 Magnesium 2.4 Total Bilirubin 0.5 AST 96 H ALT 94 H Alkaline Phosphatase 64 Troponin I C-Reactive Prot, Quant Total Protein 6.6 Albumin 3.8 Globulin 2.8 Albumin/Globulin Ratio 1.4 Triglycerides Cholesterol LDL Cholesterol, Calc HDL Cholesterol Cholesterol/HDL Ratio TSH Coccidioides IgM Ab Influenza A (Rapid) Influenza B (Rapid) Quality Measures Quality Measures VTE prophylaxis Advance care planning discussed with:: patient Assessment & Plan Assessment Current Active Medications: Generic Name Dose Route Start Last Admin Trade Name Freq PRN Reason Stop Dose Admin Acetaminophen 650 mg 02/11/25 00:35 Acetaminophen 325 Mg Tablet PO 03/13/25 00:34 Q4HR PRN Fever >100.4 an pain 1-3 Hydrocodone Bitart/Acetaminophen 1 tab 02/11/25 09:04 02/12/25 00:31 Hydrocodone/Apap 5/325 Tablet PO 02/16/25 09:03 1 tab Q6HR PRN Administration Pain4-7 Albuterol/Ipratropium 3 ml 02/11/25 01:00 02/12/25 06:40 Albuterol/Ipratropium (Duoneb) Rt Amanda 3 Ml Nebu INH 03/13/25 00:59 3 ml Q6HRRT YASMANY Administration Aspirin 81 mg 02/11/25 09:00 02/11/25 08:21 Aspirin Ec 81 Mg Tabec PO 03/13/25 08:59 81 mg QDAY YASMANY Administration Atorvastatin Calcium 80 mg 02/11/25 21:00 02/11/25 20:25 Atorvastatin Calcium 20 Mg Tablet PO 03/13/25 20:59 80 mg HS YASMANY Administration Gabapentin 600 mg 02/11/25 17:00 02/12/25 05:16 Gabapentin 300 Mg Capsule PO 03/13/25 16:59 600 mg QID YASMANY Administration Ceftriaxone Sodium/Dextrose 1 gm in 50 mls @ 100 mls/hr 02/11/25 09:00 02/11/25 19:00 Rocephin/D5w 1gm Iv Premix IV 02/18/25 08:59 Infused QDAY YASMANY Infusion Azithromycin 500 mg/ Sodium 250 mls @ 250 mls/hr 02/12/25 09:00 Chloride IV 02/19/25 08:59 QDAY YASMANY Heparin Sodium/Dextrose 25,000 unit in 250 mls @ 9.969 mls/hr 02/11/25 18:30 02/12/25 07:13 Heparin In D5w Ivpb IV 02/25/25 18:29 13 units/kg/hr .Q24H YASMANY 14.4 mls/hr Protocol Titration 9 UNITS/KG/HR Losartan Potassium 25 mg 02/11/25 10:30 02/11/25 10:30 Losartan Potassium 25 Mg Tablet PO 03/13/25 10:29 25 mg DAILY YASMANY Administration Methylprednisolone Sodium Succinate 40 mg 02/11/25 09:00 02/11/25 08:22 Methylprednisolone Sod Succ 40 Mg/Ml Vial IVP 02/18/25 08:59 40 mg QDAY YASMANY Administration Metoprolol Succinate 100 mg 02/11/25 10:30 02/11/25 11:39 Metoprolol Succinate Xl 25 Mg Tabcr PO 03/13/25 10:29 100 mg DAILY YASMANY Administration Nicotine 21 mg 02/11/25 14:15 02/11/25 15:26 Nicotine Patch 21 Mg/24 Hr Patch.Td24 TOP 03/13/25 14:14 21 mg QDAY YASMANY Administration Pantoprazole Sodium 20 mg 02/11/25 09:00 02/11/25 08:21 Pantoprazole 20 Mg Tablet PO 03/13/25 08:59 20 mg QDAY YASMANY Administration Sodium Chloride 3 ml 02/10/25 20:21 Sodium Chloride Rt Amanda 0.9% 3 Ml Nebu INH 03/12/25 20:20 PRN PRN SOLN Plan Mr. Molina is a 70-year-old with past medical history of of type 2 diabetes, hypertension, and COPD who presented to the ED on 02/11/2025 with chief complaint of worsening shortness of breath. Admitted for acute hypoxic respiratory i failure secondary to COPD exacerbation evaluation and management, found to have no cardiac vessel disease, with PAH and HFpEF ef 50-55%, continues on abx for CAP. #Acute hypoxic respiratory failure secondary to #COPD exacerbation, not on home O2 #Superimposed RLL pneumonia #Pulmonary nodules #Active Tobacco Smoking (50 pack years) Patient presented with worsen shortness of breath and dry cough. O2 sat 92% 4 L nasal cannula. Denies fever, chills and recent sick contact. Respiratory respiratory likely secondary to pneumonia and possible CHF exacerbation. Concern for CHF exacerbation given the fact that patient has orthopnea, paroxysmal nocturnal dyspnea and bilateral bilateral extremity lower edema. Chest x-ray showed mild CHF with superimposed pneumonia of the right lung. Chest CTA showed COPD, pulmonary artery hypertension, significant pneumonia right lung. Multiple nodules in the right lung. Follow-up chest imaging post antibiotic treatment COVID-19 negative, influenza A and B negative -Started ceftriaxone 1gm daily (02/11- -Started azithromycin 200 mg daily (02/11- -DuoNeb as needed -Sputum culture and Gram stain ordered -cocci serology IgM negative -Pain control Tylenol morphine -Supplemental O2 as needed -Maintain saturation 88-92% -Nicotine patch 21 qd -CARDS recs home with home o2 -outpatient monitoring of pulmonary nodules with annual low dose CT chest #HFpEF (EF 50-55% 01/2025) #PAH Patient has orthopnea, paroxysmal nocturnal dyspnea and bilateral lower extremity edema, additionally crackles heard on pulmonary exam. Per med list patient takes Metoprolol, Losartan, and HCTZ 10mg qday. Patient does not recall his medication, and reports non-compliance. see #dementia BNP 686 suggestive of heart failure - Cardiac echo Normal left ventricular size and function. Approximate ejection fraction is 50-55%. moderate PAH - Strict intakes and output - A1C 6.6, procal wnl, TSH, lipid panel (triglycerides 259, cholesterol 200, HDL 36) - Lasix 40 PO qd per cards recs - GDMT: on metoprolol, losartan, #NSTEMI ruled out s/p cardiac cath 02/12 #Troponinemia - downtrending Likely NSTEMI type II secondary to demand ischemia from acute hypoxic respiratory failure. Patient endorses only right-sided pain radiating to the back, denies chest pain and palpitation. Chest CTA showed Pneumonia and COPD.ED provider contacted Dr. Isabel, low suspicion FOR NSTEMI type I or aortic dissection given the age and risk factors DM, HLD in this patient. Troponin 0.522>0.422. EKG showed sinus rhythm with rate of 91 and QTc of 473 - troponins are downtrending - Continue to monitor - Started Aspirin 81 mg daily - cardiology consulted, appreciate recs #UTI pt reports dysuria UA with 2+ protien, 1+ ketones, and 3+ blood renal US with mild parychymal scar Urine cx pending -on ctx 1 gm q8hr (02/11- #Transaminitis - resolving Likely transient to hypoperfusion form demand ischemia and po oral intake AST 147 and ALT 69 - continue to monitor for possible symptomatic liver injury - follow the plans mention above #Tcr-bfzotiv-ozumuybba type 2 diabetes mellitus- well controlled Admission glucose 100, last A1c on 03/04/2022 is 5.6. Patient reported history of diabetes in which she is on home medication metformin 500mg BID - a1c 6.2 - no sliding scale needed #Primary hypertension Patient reports show hypertension, does not recall is on medication. Reports noncompliance to medication. On admission blood pressure 166/108 -losartan 25 po qd -metoprolol 200 mg qd #Hx of HLD - Started Atorvastatin 20 mg Qday #?Dementia pt reports increased forgetfullness and not taking medications. is alert and oriented x 3, but may have some mild cognitive decline. - recommend out patient follow up and MOCA #Falls #Peripheral Neuropathy #Suspect PAD given smoking hx pt reports living alone and having several unwitnessed falls - pt eval - non con Head CT- Negative for acute hemorrhage, mass effect or midline shift - resume home gabapentin 600 mg QID - BLE arterial US with no PAD on read. #chronic lower back pain - norco 5-325 q6hr prn Hospital management: Lines: peripheral IV GI prophylaxis: pantoprazole DVT prophylaxis: Heparin SC BID Disposition: tele for management of AHRF, s/p cardiac cath, negative for disease CODE STATUS: Full code Plan discussed with Dr. Murcia, Dr Harrington, and Dr. Hemalatha Peace MD PGY1 Attending Provider Attestation/Addendum David, Jeane Penny DO, attest that I was physically present for the godwin portions of the service and evaluated the patient with the resident and I reviewed and discussed the case with the resident and agree with the resident's findings and plans of care as documented above Patient seen and eval this afternoon due to cardiac cath. Patient was found to have no obstructive disease. However, patient was noted to have cor pulmonale, secondary to RVSP of 45 mmHg indicating mild to moderate pulmonary hypertension. Likely secondary to COPD/lung disease. Will start patient on oral diuretics. Patient is currently complaining of his neuropathy in his b/l LE. He states he takes 4mg of dilaudid at least twice a day, along with gabapentin. Patient states he is unable to sleep due to pain and discomfort. He currently remains on 3L/NC.
[2025-02-12] MEDS: cefTRIAXone/D5w 1gm IV premix 1 GM/50 ML BAG IV (08:29)
[2025-02-12] MEDS: LOSARTAN POTASSIUM 25 MG TABLET PO (08:34)
[2025-02-12] MEDS: ASPIRIN EC 81 MG TABEC PO (08:34)
[2025-02-12] MEDS: NICOTINE PATCH 21 MG/24 HR PATCH.TD24 TOP (08:35)
[2025-02-12] MEDS: METOPROLOL SUCCINATE XL 25 MG TABCR 100 MG PO (08:35)
[2025-02-12] MEDS: PANTOPRAZOLE 20 MG TABLET PO (08:35)
[2025-02-12] MEDS: AZITHROMYCIN INJ 500 MG in SODIUM CHLORIDE 0.9% 250 ML 250 ML 250 MG IV (09:00)
--- NOTE | 2025-02-12 13:21 | PC.NURSE ---
1227 patient is awake, alert, breathing unlabored, s/p LHC by Dr. Shepard, TR band present to right wrist, no bleeding or hematoma noted patient transferred to laborer high density press bay 6 for recovery. No need to continue heparin drip. 1300 patient sitting in bed eating lunch tray 1315 patient is awake, alert, breathing unlabored, dressing to right wrist dry wiht no bleeding or hematoma, patient tolerated food tray with no nausea or vomiting, report given to Bruno GARCIA
--- NOTE | 2025-02-12 14:17 | ESOP_ITS ---
RE: MATILDE RENTERIA : 1955 DATE OF OPERATION: 02/12/2025 PROCEDURES PERFORMED: 1. Diagnostic left heart cardiac catheterization, selective coronary angiogram, left ventricular angiogram, CPT 60523. 2. Ultrasound-guided access of the right radial artery. 3. Conscious sedation for 30-minute duration. DIAGNOSES: Shortness of breath, chest pressure, elevated troponin level, acute NSTEMI, and shortness of breath. HISTORY AND INDICATIONS: The patient is a 70-year-old male with a past medical history of chronic smoking, COPD, severe shortness of breath, chest tightness, heaviness, and orthopnea. The patient was having orthopnea, severe shortness of breath, troponin elevation, and BNP elevation as well. Cardiac echo showed evidence of what appears to be mild LV dysfunction, mostly well preserved ejection fraction; however, some suggestion of cor pulmonale, right ventricular enlargement, and moderate pulmonary hypertension. Cardiac catheterization and coronary angiogram is recommended to assess if the patient is a candidate for coronary intervention, revascularization, and underlying CAD for possible PCI intervention. DESCRIPTION OF PROCEDURE: The patient was brought to the cardiac catheterization laboratory where he was given 2 mg of Versed and 50 mcg of fentanyl for sedation. Right radial approach was taken. The right radial artery was cannulated with a micropuncture technique. A 6- Cymraes Glidesheath was introduced. Radial cocktail given. Selective right and left coronary angiograms performed by TIG-4 diagnostic catheter. Left heart catheterization and left ventricular angiogram by TIG-4 diagnostic catheter. The patient tolerated the procedure with no complications. HEMODYNAMICS: Left ventricular pressure was 126/2. EDP is 12 mmHg. Aortic pressure was 126/80. No gradient across the aortic valve. Left ventricular angiogram showed evidence of mild global hypokinesis. Ejection fraction of 50% to 55%. Coronary angiogram showed following findings: Right coronary artery is a large and dominant, gives off PDA and posterolateral branches appear normal. Left coronary system: Left main coronary artery is normal. Left anterior descending artery showed mildly irregularity in the mid segment. No significant stenosis. Circumflex artery is large and appears normal. There is evidence of mild plaque in the proximal segment, obtuse marginal branch, circumflex artery. Distal vessel is normal. SUMMARY OF FINDINGS AND SUGGESTIONS: 1. Normal nonobstructive epicardial coronary arteries, mild plaque in the LAD and circumflex arteries. 2. Normal left ventricular function. EF of 55%. 3. Normal hemodynamics. Left ventricular EDP is 12. RECOMMENDATIONS: The patient does have COPD lung disease, right ventricular enlargement, and mild to moderate pulmonary hypertension, 45 mmHg PA pressure on the echo. The patient had a negative study for pulmonary embolism and a negative workup for coronary artery disease. The patient does have what appears to be cor pulmonale, right ventricular enlargement, and PA pressure elevation. Recommend discharge the patient home on diuretic therapy and home oxygen 2 liters per minute for possibly group 3 pulmonary hypertension secondary to COPD and lung disease. He does not have any left heart disease or left heart failure since LVEDP is normal. The patient is reassured about these findings. Recommend continue medical management. I will see him for followup as an outpatient. We will repeat a cardiac echo in 2-3 months to assess the right heart while on home oxygen therapy. DT: 13:13:53 TT: 14:14:00 Ref: [id number] - TID: [id number] [facility]
--- NOTE | 2025-02-12 15:20 | PC.SS ---
SS follow up note; Patient is pending an Agio-gram. Patient will discharge home when medically cleared.
--- NOTE | 2025-02-12 16:48 | PC.PT ---
Patient is safe to ambulate to the bathroom and in the halls with 1 staff and a FWW. RN made aware.
[2025-02-12] MEDS: HYDROmorphone INJ 2 MG/ML VIAL 0.5 MG IVP ×2 (18:03→23:36)
[2025-02-12] MEDS: ATORVASTATIN CALCIUM 20 MG TABLET 80 MG PO (20:29)
[2025-02-13] VITALS (13 sets, daily range): BP systolic 128–143; BP diastolic 78–97; PULSE 58–75; RESP 13–20; TEMP 36.1–36.7; O2SAT 93–99; BMI 34.0; BMI 34.2
[2025-02-13] MEDS: ALBUTEROL/IPRATROPIUM (Duoneb) RT SOL 3 ML NEBU INH ×6 (00:24→22:59)
--- NOTE | 2025-02-13 03:15 | PC.NURSE ---
[facility] downtime from 0200 to 0235.
[2025-02-13] MEDS: HYDROmorphone INJ 2 MG/ML VIAL 0.5 MG IVP ×5 (03:58→21:23)
[2025-02-13 05:17] LABS: Basophils # (Auto) 0.0 Thou/mm3 (0.0-0.2); Basophils % (Auto) 0 % (0-2.5); Eosinophils # (Auto) 0.0 Thou/mm3 (0.0-0.5); Eosinophils % (Auto) 0 % (0-10); Hematocrit 52.8 % (41.0-53.0); Hemoglobin 16.5 g/dL (13.5-16.0); Immature Granulocytes Auto 0.03 Thou/mm3 (0.00-0.00); Lymphocytes # (Auto) 1.9 Thou/mm3 (1.0-4.8); Lymphocytes % (Auto) 19 % (10-50); Mean Corpuscular HGB Conc 31.3 g/dl (31.0-37.0); Mean Corpuscular Hemoglobin 27.9 pg (25.0-35.0); Mean Corpuscular Volume 89 fL (80-100); Monocytes # (Auto) 0.7 Thou/mm3 (0.0-0.8); Monocytes % (Auto) 7 % (0-12); Neutrophils # (Auto) 7.4 Thou/mm3 (1.8-7.7); Neutrophils % (Auto) 74 % (37-80); Nucleated Red Blood Cell # 0.00 Thou/mm3 (0.00-0.00); Nucleated Red Blood Cell % 0 /100 WBC (0); Platelet Count 183 Thou/mm3 (140-440); RDW Standard Deviation 51.1 fL (35.1-43.9); Red Blood Count 5.92 Miln/mm3 (4.50-5.90); White Blood Count 10.1 Thou/mm3 (3.8-10.6)
[2025-02-13] MEDS: GABAPENTIN 300 MG CAPSULE 600 MG PO ×4 (05:18→21:21)
[2025-02-13 06:11] LABS: Alanine Aminotransferase 79 U/L (10-49); Albumin, Serum 3.7 gm/dL (3.4-4.8); Albumin/Globulin Ratio 1.4 (1.2-2.2); Alkaline Phosphatase 62 U/L (46-116); Anion Gap 6 (7-16); Aspartate Amino Transferase 54 U/L (0-34); BUN/Creatinine Ratio 29 Ratio (12-20); Bilirubin,Total 0.5 mg/dL (0.3-1.2); Blood Urea Nitrogen 32 mg/dL (9-23); Calcium 9.5 mg/dL (8.3-10.6); Calcium (Corrected) 9.7 mg/dL (8.5-10.1); Carbon Dioxide 28.7 mMol/L (20.0-31.0); Chloride 106 mMol/L (98-107); Creatinine (Component) 1.1 mg/dL (0.6-1.3); Estimated Creatinine Clearance 80.2 mL/min (>60); Globulin 2.7 gm/dL (2.3-3.5); Glucose 120 mg/dL (74-106); Magnesium 2.3 mg/dL (1.6-2.6); Osmolality,Calculated 289 (275-295); Phosphorous 3.8 mg/dL (2.4-5.1); Potassium 4.0 mMol/L (3.4-5.1); Sodium 141 mMol/L (136-145); Total Protein 6.4 gm/dL (5.7-8.2); eGFR > 60 See Note
[2025-02-13] MEDS: NICOTINE PATCH 21 MG/24 HR PATCH.TD24 TOP (08:09)
[2025-02-13] MEDS: METOPROLOL SUCCINATE XL 25 MG TABCR 100 MG PO (08:10)
[2025-02-13] MEDS: SENNA/DOCUSATE SOD 1 TAB TABLET PO (08:10)
[2025-02-13] MEDS: LOSARTAN POTASSIUM 25 MG TABLET PO (08:10)
[2025-02-13] MEDS: PANTOPRAZOLE 20 MG TABLET PO (08:10)
[2025-02-13] MEDS: ASPIRIN EC 81 MG TABEC PO (08:10)
[2025-02-13] MEDS: cefTRIAXone/D5w 1gm IV premix 1 GM/50 ML BAG IV (08:11)
[2025-02-13] MEDS: AZITHROMYCIN INJ 500 MG in SODIUM CHLORIDE 0.9% 250 ML 250 ML 250 MG IV (08:11)
--- NOTE | 2025-02-13 08:58 | PC.SS ---
Addendum entered by Virginia Laguerre 02/13/25 15:40: SS follow up note; Patient will discharge possibly tomorrow. SS submitted DME referral for home 02, Rollator walk and Nebulizer. [facility] will contact patient in regards to delivery. Original Note: SS follow up note; SS notified patient's nurse that patient needs 02 test. Patient will discharge home today.
--- NOTE | 2025-02-13 10:16 | ESPR_ITS ---
<Statement entered by Yuval Jimenez MD - 02/13/25 15:32> I saw and examined patient personally and supervised PGY 1 resident, Dr. Dao with formulating a management plan. I agree with the documentation with the exceptions as listed below. Today patient had almost absent breath sounds on exam also had positive Raj- Hallpike exam. Increase DuoNeb frequency to every 4 hours added as needed Q2 hourly. Resumed methylprednisone 40 mg IV daily will continue with ceftriaxone and azithromycin] 02/11-. Patient was recommended for discharge to SNF by PT, however he refused. We will order home oxygen, nebulizer and home health. Once patient's COPD exacerbation improves, anticipate discharge within next 24 to 48 hours. Plan of care discussed with Attending Dr. Hemalatha Jimenez MD PGY 2 Disclaimer: This note was dictated by speech recognition. Minor errors in senior physical therapist may be present due to voice recognition software. Documentation for date of: 02/13/25 Subjective Subjective Interval history: Mr. Molina is a 70-year-old with past medical history of of type 2 diabetes, hypertension, and COPD who presented to the ED on 02/11/2025 with chief complaint of worsening shortness of breath. Admitted for acute hypoxic respiratory failure secondary to COPD exacerbation evaluation and management 02/11/2025: Patient seen and examined at bedside. pt reports desire to go home and a fear that something bad will happen to him. pt reassured that we will take care of him. Cardiology consulted given NSTEMI. pending ECHO given c/f chf. will continue to treat for presumed CAP and COPD exaccerbation. He reported having had multiple falls in the past several weeks, will have PT evaluate. CT head negative for acute hemorrhage, mass effect or midline shift. Pt reported concern that his ear drum was perforated, ears were examined, light reflex intact bilaterally and wax noted. 02/12/2025: Patient seen and examined at bedside. No new concerns. pt taken for cardiac cath today, found to have negative study for pulmonary embolism and a negative workup for coronary artery disease. The patient does have what appears to be cor pulmonale, right ventricular enlargement, and PA pressure elevation. Recommend discharge the patient home on diuretic therapy and home oxygen 2 liters per minute for possibly group 3 pulmonary hypertension secondary to COPD and lung disease. 02/13/2025: Patient seen and examined bedside. Cardiac cath and coronary angiogram yesterday showed nonobstructive epicardiocoronary artery, mild plaque in LAD and circumflex artery, normal LVEF: 50-55% and normal hemodynamics with LVEDP: 12. Patient is not a great historian, he is unsure of past diagnosis of BPH or recent visits to urology in June. He denies cough, SOB, chestpain, dysuria, and palpitations. He endorses that his main problem is ongoing dizziness and nausea explained that he feels like his head is being pushed forward from the back and side making it very difficult to walk. Attempted to decrease O2 requirements and patient desaturated to 82% on RA. Exam Vital Signs Temp Pulse Resp BP Pulse Ox O2 Del Method O2 Flow Rate 97.2 F 75 17 140/89 H 95 Nasal Cannula 3 02/13/25 08:00 02/13/25 08:10 02/13/25 08:00 02/13/25 08:10 02/13/25 08:00 02/13/25 08:00 02/13/25 08:00 Narrative Exam General: Alert. Morbidly obese in on NC , a and o x3 Skin: Warm, dry, intact. No rash or ecchymoses. Head: Normocephalic, atraumatic. Eye: Normal conjunctiva, PERRL. Throat: Oral mucosa moist. No obvious lesions in oropharynx. Cardiovascular: Regular rate and rhythm, no murmur, +S1/S2. vilacious lower extremities with trace edema Respiratory:bilateral expiratory wheezes with some crackles heard at the bases. Poor airflow Gastrointestinal: Soft, nontender, No guarding or rebound tenderness. Extremities:Chronic ischemic changes in the lower extremities, shiny skin, loss of hair, peripheral redness, weak peripheral pulses bilaterally the lower extremities Neuro: Alert and oriented x3.No focal deficits observed. Conversant, moving all extremities. No overt cerebellar signs/incoordination. +Raj Low pike for nausea and L eye nystagmus. Psychiatric: Cooperative, appropriate affect Objective Labs 02/13/25 04:42 02/13/25 04:42 Labs: Laboratory Results - last 24 hr 02/13/25 04:42 WBC 10.1 RBC 5.92 H Hgb 16.5 H Hct 52.8 MCV 89 MCH 27.9 MCHC 31.3 RDW Std Deviation 51.1 H Plt Count 183 Neut % (Auto) 74 Lymph % (Auto) 19 [place] % (Auto) 7 Eos % (Auto) 0 Baso % (Auto) 0 Neut # (Auto) 7.4 Lymph # (Auto) 1.9 [place] # (Auto) 0.7 Eos # (Auto) 0.0 Baso # (Auto) 0.0 Immature Gran # (Auto) 0.03 H Absolute Nucleated RBC 0.00 Immature Gran % 0 Nucleated RBC % 0 Sodium 141 Potassium 4.0 Chloride 106 Carbon Dioxide 28.7 Anion Gap 6 L BUN 32 H Creatinine 1.1 Estim Creat Clear Calc 80.2 eGFR > 60 BUN/Creatinine Ratio 29 H Glucose 120 H Calculated Osmolality 289 Calcium 9.5 Corrected Calcium 9.7 Phosphorus 3.8 Magnesium 2.3 Total Bilirubin 0.5 AST 54 H ALT 79 H Alkaline Phosphatase 62 Total Protein 6.4 Albumin 3.7 Globulin 2.7 Albumin/Globulin Ratio 1.4 Quality Measures Quality Measures VTE prophylaxis Advance care planning discussed with:: other Assessment & Plan Assessment Current Active Medications: Generic Name Dose Route Start Last Admin Trade Name Freq PRN Reason Stop Dose Admin Acetaminophen 650 mg 02/11/25 00:35 Acetaminophen 325 Mg Tablet PO 03/13/25 00:34 Q4HR PRN Fever >100.4 an pain 1-3 Albuterol/Ipratropium 3 ml 02/13/25 11:00 Albuterol/Ipratropium (Duoneb) Rt Amanda 3 Ml Nebu INH 03/15/25 10:59 Q4HRRT YASMANY Aspirin 81 mg 02/11/25 09:00 02/13/25 08:10 Aspirin Ec 81 Mg Tabec PO 03/13/25 08:59 81 mg QDAY YASMANY Administration Atorvastatin Calcium 80 mg 02/11/25 21:00 02/12/25 20:29 Atorvastatin Calcium 20 Mg Tablet PO 03/13/25 20:59 80 mg HS YASMANY Administration Furosemide 40 mg 02/13/25 09:00 02/13/25 08:10 Furosemide 40 Mg Tablet PO 03/15/25 08:59 40 mg QDAY YASMANY Administration Gabapentin 600 mg 02/11/25 17:00 02/13/25 05:18 Gabapentin 300 Mg Capsule PO 03/13/25 16:59 600 mg QID YASMANY Administration Hydromorphone HCl 0.5 mg 02/12/25 15:25 02/13/25 08:09 Hydromorphone Inj 2 Mg/Ml Vial IVP 02/17/25 15:24 0.5 mg Q4HR PRN Administration Pain 7-10 Ceftriaxone Sodium/Dextrose 1 gm in 50 mls @ 100 mls/hr 02/11/25 09:00 02/13/25 08:11 Rocephin/D5w 1gm Iv Premix IV 02/18/25 08:59 100 mls/hr QDAY YASMANY Administration Azithromycin 500 mg/ Sodium 250 mls @ 250 mls/hr 02/12/25 09:00 02/13/25 08:11 Chloride IV 02/19/25 08:59 250 mls/hr QDAY YASMANY Administration Losartan Potassium 25 mg 02/11/25 10:30 02/13/25 08:10 Losartan Potassium 25 Mg Tablet PO 03/13/25 10:29 25 mg DAILY YASMANY Administration Methylprednisolone Sodium Succinate 40 mg 02/14/25 09:00 Methylprednisolone Sod Succ 40 Mg/Ml Vial IVP 02/21/25 08:59 QDAY YASMANY Metoprolol Succinate 100 mg 02/11/25 10:30 02/13/25 08:10 Metoprolol Succinate Xl 25 Mg Tabcr PO 03/13/25 10:29 100 mg DAILY YASMANY Administration Nicotine 21 mg 02/11/25 14:15 02/13/25 08:09 Nicotine Patch 21 Mg/24 Hr Patch.Td24 TOP 03/13/25 14:14 21 mg QDAY YASMANY Administration Pantoprazole Sodium 20 mg 02/11/25 09:00 02/13/25 08:10 Pantoprazole 20 Mg Tablet PO 03/13/25 08:59 20 mg QDAY YASMANY Administration Sennosides 1 tab 02/13/25 09:00 02/13/25 08:10 Senna/Docusate Sod 1 Tab Tablet PO 03/15/25 08:59 1 tab QDAY YASMANY Administration Protocol Plan Mr. Molina is a 70-year-old with past medical history of of type 2 diabetes, hypertension, and COPD who presented to the ED on 02/11/2025 with chief complaint of worsening shortness of breath. Admitted for acute hypoxic respiratory i failure secondary to COPD exacerbation evaluation and management, found to have no cardiac vessel disease, with PAH and HFpEF ef 50-55%, continues on abx for CAP and restarting steroids for COPD. #Acute hypoxic respiratory failure secondary to #Acute COPD exacerbation, not on home O2 #Superimposed RLL pneumonia #Pulmonary nodules #Active Tobacco Smoking (50 pack years) Patient presented with worsen shortness of breath and dry cough. O2 sat 92% 4 L nasal cannula. Denies fever, chills and recent sick contact. Respiratory respiratory likely secondary to pneumonia and possible CHF exacerbation. Concern for CHF exacerbation given the fact that patient has orthopnea, paroxysmal nocturnal dyspnea and bilateral bilateral extremity lower edema. Chest x-ray showed mild CHF with superimposed pneumonia of the right lung. Chest CTA showed COPD, pulmonary artery hypertension, significant pneumonia right lung. Multiple nodules in the right lung. Follow-up chest imaging post antibiotic treatment COVID-19 negative, influenza A and B negative -Started ceftriaxone 1gm daily (02/11- -Started azithromycin 200 mg daily (02/11- -DuoNeb Q4H and Duonebs PRN Q2H -Methylprednisone 40mg IVP QD (02/11, restarted 02/13) -Sputum culture and Gram stain: FUP -cocci serology IgM negative -Pain control Tylenol morphine -Supplemental O2 as needed -Maintain saturation 88-92% -Nicotine patch 21 qd -CARDS recs home with home o2 -outpatient monitoring of pulmonary nodules with annual low dose CT chest #HFpEF (EF 50-55% 01/2025) #PAH Patient has orthopnea, paroxysmal nocturnal dyspnea and bilateral lower extremity edema, additionally crackles heard on pulmonary exam. Per med list patient takes Metoprolol, Losartan, and HCTZ 10mg qday. Patient does not recall his medication, and reports non-compliance. see #dementia BNP 686 suggestive of heart failure - Cardiac echo Normal left ventricular size and function. Approximate ejection fraction is 50-55%. moderate PAH - Strict intakes and output - A1C 6.6, procal wnl, TSH, lipid panel (triglycerides 259, cholesterol 200, HDL 36) - Lasix 40 PO qd per cards recs - Metoprolol succinate 100 mg PO QD - Losartan 25 mg PO QD #NSTEMI ruled out s/p cardiac cath 02/12 #Troponinemia - downtrending Likely NSTEMI type II secondary to demand ischemia from acute hypoxic respiratory failure. Patient endorses only right-sided pain radiating to the back, denies chest pain and palpitation. Chest CTA showed Pneumonia and COPD.ED provider contacted Dr. Isabel, low suspicion FOR NSTEMI type I or aortic dissection given the age and risk factors DM, HLD in this patient. Troponin 0.522>0.422. EKG showed sinus rhythm with rate of 91 and QTc of 473 - troponins are downtrending - Continue to monitor - Started Aspirin 81 mg daily - cardiology consulted, appreciate recs #UTI pt denies dydsuria, states has never been to a urologist and does not know what BPH is. However multiple notes from urologist and PCP discussing diagnosis and treatment plans with patient of which he is documented refusing. Urine culture positive, has benefited from cross treatment of his CAP. UA with 2+ protien, 1+ ketones, and 3+ blood renal US with mild parychymal scar Urine cx: GNR + GPC -on ctx 1 gm q8hr (02/11- #Transaminitis - resolving Likely transient to hypoperfusion form demand ischemia and po oral intake AST 147 and ALT 69, 02/13 AST; 54, ALT: 79 - continue to monitor for possible symptomatic liver injury - follow the plans mention above #Lif-snuiuxs-uyupjyrob type 2 diabetes mellitus- well controlled Admission glucose 100, last A1c on 03/04/2022 is 5.6. Patient reported history of diabetes in which she is on home medication metformin 500mg BID - a1c 6.2 - no sliding scale needed #Primary hypertension Patient reports show hypertension, does not recall is on medication. Reports noncompliance to medication. On admission blood pressure 166/108 -losartan 25 po qd -metoprolol 200 mg qd #Hx of HLD - Started Atorvastatin 20 mg Qday #?Dementia pt reports increased forgetfullness and not taking medications. is alert and oriented x 3, but may have some mild cognitive decline. - recommend out patient follow up and MOCA #BPPV #Falls #Peripheral Neuropathy #Suspect PAD given smoking hx pt reports living alone and having several unwitnessed falls. Raj hallpike revealed nystagmus of the left eye and nausea, however nausea and dizziness resolved after the victor manuel maneuver. - pt eval for education - Started meclizine 25 mg PO TID for dizziness/nausea - non con Head CT- Negative for acute hemorrhage, mass effect or midline shift - resume home gabapentin 600 mg QID - BLE arterial US with no PAD on read. #chronic lower back pain - norco 5-325 q6hr prn Hospital management: Lines: peripheral IV GI prophylaxis: pantoprazole DVT prophylaxis: Heparin SC BID Disposition: tele for management of AHRF, s/p cardiac cath, negative for disease CODE STATUS: Full code Plan discussed with Dr. Penny and supervising resident Dr. Tony Dao MD PGY1 Attending Provider Attestation/Addendum IJeane, DO, attest that I was physically present for the godwin portions of the service and evaluated the patient with the resident and I reviewed and discussed the case with the resident and agree with the resident's findings and plans of care as documented above Patient seen and evaluated this AM. patient states that he is doing well. He had some dizziness this AM and noted to have nystagmus on raj halpike exam, suspect BPPV. Will place meclizine as needed for dizziness. Patient noted to have diminished breath sounds in b/l lung negron, as well as wheezing in the right upper lung negron. Will place steroids back on and breathing treatments q4h. Patient remains on 3l/NC. He states his pain is well controlled today and was able to work with PT more. Patient refuses SNF placement. Will continue wiht inpatient PT and titrate O2 as tolerated. WIll need home health upon discharge.
[2025-02-13 10:48] LABS: Cocci Serology, IgG Negative (Negative)
--- NOTE | 2025-02-13 11:05 | PC.NURSE ---
Pt SpO2% at rest on RA is 82%, SpO2% with exercise on RA is 82%, SpO2% on O2 with exercise is 90%.
--- NOTE | 2025-02-13 11:40 | ESPR_ITS ---
<Statement entered by Lanie Shepard MD - 02/14/25 17:13> The patient examined and evaluated by me again today patient had a coronary angiogram showed nonobstructive coronary arteries and evidence of right ventricle enlargement and moderate pulmonary hypertension secondary lung disease acute and chronic cor pulmonale from pulmonary disease COPD with group 3 pulmonary hypertension. Patient is recommended to be discharged home on home oxygen therapy will reassess him as an outpatient. Strongly counseled to quit cigarette smoking evaluated patient with resident physician PGY 2 Dr. Chris PICKERING agree with the plan treatment and recommendation Documentation for date of: 02/13/25 Subjective Subjective Interval history: No acute overnight events. Seen and examined at bedside while working with physical therapy and tolerating well. States that his shortness of breath has improved significantly since being admitted. Otherwise, denies any pain or bruising of right wrist. Recommended to follow-up outpatient and to be discharged on Lasix 40 mg with home oxygen with outpatient echo in 2 to 3 months. Exam Vital Signs Temp Pulse Resp BP Pulse Ox O2 Del Method O2 Flow Rate 97.2 F 62 16 140/89 H 95 Nasal Cannula 3 02/13/25 08:00 02/13/25 10:48 02/13/25 10:48 02/13/25 08:10 02/13/25 10:48 02/13/25 08:00 02/13/25 10:48 Narrative Exam General: AOx3, no acute distress, able to speak full sentences HEENT: NC/AT, mucous membranes moist, bilateral sclera anicteric Cardiovascular: regular rate and rhythm, S1/S2 present, no murmurs appreciated Pulmonary: breathing comfortably on 3 L NC, minimal expiratory wheezing appreciated Abdominal: soft, non-tender, non-distended, no rebound/guarding, normal bowel sounds present Musculoskeletal: normal ROM, no peripheral edema Skin: warm and dry, intact, no rashes Objective Labs 02/13/25 04:42 02/13/25 04:42 Labs: Laboratory Results - last 24 hr 02/11/25 02/13/25 08:15 04:42 WBC 10.1 RBC 5.92 H Hgb 16.5 H Hct 52.8 MCV 89 MCH 27.9 MCHC 31.3 RDW Std Deviation 51.1 H Plt Count 183 Neut % (Auto) 74 Lymph % (Auto) 19 [place] % (Auto) 7 Eos % (Auto) 0 Baso % (Auto) 0 Neut # (Auto) 7.4 Lymph # (Auto) 1.9 [place] # (Auto) 0.7 Eos # (Auto) 0.0 Baso # (Auto) 0.0 Immature Gran # (Auto) 0.03 H Absolute Nucleated RBC 0.00 Immature Gran % 0 Nucleated RBC % 0 Sodium 141 Potassium 4.0 Chloride 106 Carbon Dioxide 28.7 Anion Gap 6 L BUN 32 H Creatinine 1.1 Estim Creat Clear Calc 80.2 eGFR > 60 BUN/Creatinine Ratio 29 H Glucose 120 H Calculated Osmolality 289 Calcium 9.5 Corrected Calcium 9.7 Phosphorus 3.8 Magnesium 2.3 Total Bilirubin 0.5 AST 54 H ALT 79 H Alkaline Phosphatase 62 Total Protein 6.4 Albumin 3.7 Globulin 2.7 Albumin/Globulin Ratio 1.4 Coccidioides IgG Ab Negative Quality Measures Quality Measures VTE prophylaxis Advance care planning discussed with:: patient Assessment & Plan Assessment Current Active Medications: Generic Name Dose Route Start Last Admin Trade Name Freq PRN Reason Stop Dose Admin Acetaminophen 650 mg 02/11/25 00:35 Acetaminophen 325 Mg Tablet PO 03/13/25 00:34 Q4HR PRN Fever >100.4 an pain 1-3 Albuterol/Ipratropium 3 ml 02/13/25 11:00 02/13/25 10:47 Albuterol/Ipratropium (Duoneb) Rt Amanda 3 Ml Nebu INH 03/15/25 10:59 3 ml Q4HRRT YASMANY Administration Albuterol/Ipratropium 3 ml 02/13/25 10:37 Albuterol/Ipratropium (Duoneb) Rt Amanda 3 Ml Nebu INH 03/15/25 10:36 Q2HR PRN SHORTNESS OF BREATH OR WHEEZE Aspirin 81 mg 02/11/25 09:00 02/13/25 08:10 Aspirin Ec 81 Mg Tabec PO 03/13/25 08:59 81 mg QDAY YAS[place]Y Administration Atorvastatin Calcium 80 mg 02/11/25 21:00 02/12/25 20:29 Atorvastatin Calcium 20 Mg Tablet PO 03/13/25 20:59 80 mg HS YAS[place]Y Administration Furosemide 40 mg 02/13/25 09:00 02/13/25 08:10 Furosemide 40 Mg Tablet PO 03/15/25 08:59 40 mg QDAY YAS[place]Y Administration Gabapentin 600 mg 02/11/25 17:00 02/13/25 05:18 Gabapentin 300 Mg Capsule PO 03/13/25 16:59 600 mg QID YASMANY Administration Hydromorphone HCl 0.5 mg 02/12/25 15:25 02/13/25 08:09 Hydromorphone Inj 2 Mg/Ml Vial IVP 02/17/25 15:24 0.5 mg Q4HR PRN Administration Pain 7-10 Ceftriaxone Sodium/Dextrose 1 gm in 50 mls @ 100 mls/hr 02/11/25 09:00 02/13/25 08:11 Rocephin/D5w 1gm Iv Premix IV 02/18/25 08:59 100 mls/hr QDAY [place]AS[place] Administration Azithromycin 500 mg/ Sodium 250 mls @ 250 mls/hr 02/12/25 09:00 02/13/25 08:11 Chloride IV 02/19/25 08:59 250 mls/hr QDAY YAS[place]Y Administration Losartan Potassium 25 mg 02/11/25 10:30 02/13/25 08:10 Losartan Potassium 25 Mg Tablet PO 03/13/25 10:29 25 mg DAILY YASMANY Administration Meclizine HCl 25 mg 02/13/25 11:27 Meclizine Hcl 25 Mg Tablet PO 03/15/25 11:26 TID PRN DIZZINESS Methylprednisolone Sodium Succinate 40 mg 02/14/25 09:00 Methylprednisolone Sod Succ 40 Mg/Ml Vial IVP 02/21/25 08:59 QDAY YAS[place]Y Metoprolol Succinate 100 mg 02/11/25 10:30 02/13/25 08:10 Metoprolol Succinate Xl 25 Mg Tabcr PO 03/13/25 10:29 100 mg DAILY YASMANY Administration Nicotine 21 mg 02/11/25 14:15 02/13/25 08:09 Nicotine Patch 21 Mg/24 Hr Patch.Td24 TOP 03/13/25 14:14 21 mg QDAY YAS[place]Y Administration Pantoprazole Sodium 20 mg 02/11/25 09:00 02/13/25 08:10 Pantoprazole 20 Mg Tablet PO 03/13/25 08:59 20 mg QDAY YASMANY Administration Sennosides 1 tab 02/13/25 09:00 02/13/25 08:10 Senna/Docusate Sod 1 Tab Tablet PO 03/15/25 08:59 1 tab QDAY YAS[place]Y Administration Protocol Plan Joel Molina is a 70-year-old male with history of type 2 diabetes mellitus, hypertension, hyperlipidemia, and COPD not on home oxygen who was admitted for COPD exacerbation and cardiology consulted to evaluate ACS vs new onset CHF. #Pulmonary arterial hypertension/cor pulmonale #Acute coronary syndrome, ruled out #Acute congestive heart failure, rule out Heavy smoker for 50 years, presented with shortness of breath and chest pressure for few months with some orthopnea. Also reported intermittent claudication. Physical examination showed chronic ischemic changes in his lower extremities. EKG noted to have ST depression throughout most leads, but cardiac cath did not reveal any CAD. Troponin on presentation was 0.522, down trended to 0.422 and likely demand ischemia. BNP was noted to be 686, chest x-ray showed pulmonary hypertension and vascular congestion but likely secondary to PAH/cor pulmonale vs left-sided HF. Cardiac cath on 02/12 revealed mild to moderate pulmonary hypertension, PA pressure 45 mmHg, right ventricular enlargement. Negative for left heart disease or left heart failure. ? Recommend to be discharged on current diuretic dose as well as home oxygen ? Follow-up outpatient in 2 to 3 months to reassess via echo while on home oxygen therapy ? Start the patient on atorvastatin 80 mg p.o. daily ? Can stop aspirin 81 mg daily as no evidence of CAD or PAD from cardiac cath and arterial duplex, respectively #Abdominal aortic aneurysm Infrarenal AAA, transverse dimension 3.7 x 3.9 cm ? Follow up outpatient #Dyslipidemia Triglycerides 212, HDl 18, and LDL 86. ? Can continue atorvastatin #COPD exacerbation #Diabetes mellitus type 2 #History of hypertension ? Continue management per primary team ----- Plan discussed with attending physician Dr. Devyn Pickering MD PGY-2 Internal Medicine
--- NOTE | 2025-02-13 13:09 | PC.NURSE ---
Patient's O2 at room air w/o oxygen is 82% and after putting on 3L nasal cannula, patient's O2 went up to 95%.
[2025-02-13] MEDS: ATORVASTATIN CALCIUM 20 MG TABLET 80 MG PO (21:22)
[2025-02-14] VITALS (10 sets, daily range): BP systolic 133–149; BP diastolic 81–98; PULSE 60–74; RESP 12–18; TEMP 35.8–36.3; O2SAT 93–99; BMI 34.2
[2025-02-14] MEDS: HYDROmorphone INJ 2 MG/ML VIAL 0.5 MG IVP ×3 (01:22→09:41)
[2025-02-14] MEDS: ALBUTEROL/IPRATROPIUM (Duoneb) RT SOL 3 ML NEBU INH ×3 (02:27→10:22)
[2025-02-14 05:15] LABS: Basophils # (Auto) 0.0 Thou/mm3 (0.0-0.2); Basophils % (Auto) 0 % (0-2.5); Eosinophils # (Auto) 0.1 Thou/mm3 (0.0-0.5); Eosinophils % (Auto) 2 % (0-10); Hematocrit 52.8 % (41.0-53.0); Hemoglobin 16.5 g/dL (13.5-16.0); Immature Granulocytes Auto 0.03 Thou/mm3 (0.00-0.00); Lymphocytes # (Auto) 2.6 Thou/mm3 (1.0-4.8); Lymphocytes % (Auto) 35 % (10-50); Mean Corpuscular HGB Conc 31.3 g/dl (31.0-37.0); Mean Corpuscular Hemoglobin 28.5 pg (25.0-35.0); Mean Corpuscular Volume 91 fL (80-100); Monocytes # (Auto) 0.7 Thou/mm3 (0.0-0.8); Monocytes % (Auto) 9 % (0-12); Neutrophils # (Auto) 3.9 Thou/mm3 (1.8-7.7); Neutrophils % (Auto) 53 % (37-80); Nucleated Red Blood Cell # 0.00 Thou/mm3 (0.00-0.00); Nucleated Red Blood Cell % 0 /100 WBC (0); Platelet Count 161 Thou/mm3 (140-440); RDW Standard Deviation 52.9 fL (35.1-43.9); Red Blood Count 5.79 Miln/mm3 (4.50-5.90); White Blood Count 7.5 Thou/mm3 (3.8-10.6)
[2025-02-14] MEDS: GABAPENTIN 300 MG CAPSULE 600 MG PO ×2 (05:36→11:44)
[2025-02-14 05:44] LABS: Alanine Aminotransferase 61 U/L (10-49); Albumin, Serum 3.4 gm/dL (3.4-4.8); Albumin/Globulin Ratio 1.3 (1.2-2.2); Alkaline Phosphatase 58 U/L (46-116); Anion Gap 7 (7-16); Aspartate Amino Transferase 37 U/L (0-34); BUN/Creatinine Ratio 23 Ratio (12-20); Bilirubin,Total 0.5 mg/dL (0.3-1.2); Blood Urea Nitrogen 25 mg/dL (9-23); Calcium 8.7 mg/dL (8.3-10.6); Calcium (Corrected) 9.2 mg/dL (8.5-10.1); Carbon Dioxide 31.9 mMol/L (20.0-31.0); Chloride 105 mMol/L (98-107); Creatinine (Component) 1.1 mg/dL (0.6-1.3); Estimated Creatinine Clearance 79.0 mL/min (>60); Globulin 2.7 gm/dL (2.3-3.5); Glucose 98 mg/dL (74-106); Magnesium 1.8 mg/dL (1.6-2.6); Osmolality,Calculated 291 (275-295); Phosphorous 4.7 mg/dL (2.4-5.1); Potassium 3.7 mMol/L (3.4-5.1); Sodium 144 mMol/L (136-145); Total Protein 6.1 gm/dL (5.7-8.2); eGFR > 60 See Note
[2025-02-14] MEDS: SENNA/DOCUSATE SOD 1 TAB TABLET PO (08:21)
[2025-02-14] MEDS: LOSARTAN POTASSIUM 25 MG TABLET PO (08:21)
[2025-02-14] MEDS: METOPROLOL SUCCINATE XL 25 MG TABCR 100 MG PO (08:22)
[2025-02-14] MEDS: PANTOPRAZOLE 20 MG TABLET PO (08:22)
[2025-02-14] MEDS: ASPIRIN EC 81 MG TABEC PO (08:22)
[2025-02-14] MEDS: NICOTINE PATCH 21 MG/24 HR PATCH.TD24 TOP (08:23)
[2025-02-14] MEDS: cefTRIAXone/D5w 1gm IV premix 1 GM/50 ML BAG IV (08:23)
[2025-02-14] MEDS: AZITHROMYCIN INJ 500 MG in SODIUM CHLORIDE 0.9% 250 ML 250 ML 250 MG IV (08:24)
--- NOTE | 2025-02-14 08:37 | ESPR_ITS ---
<Statement entered by Lanie Shepard MD - 02/17/25 16:35> I personally examined the patient with the PGY 2 physician patient clinically stable appears to be doing better not have any chest pain shortness edema of the feet improved will follow the patient as an outpatient agree with the treatment plan recommendation as documented Documentation for date of: 02/14/25 Subjective Subjective Interval history: No acute overnight events. Seen and examined at bedside and states that his shortness of breath has improved significantly since being admitted. Otherwise, denies any pain or bruising of right wrist. Recommended to follow-up outpatient and to be discharged on Lasix 40 mg with home oxygen with outpatient echo in 2 to 3 months. Exam Vital Signs Temp Pulse Resp BP Pulse Ox O2 Del Method O2 Flow Rate 97.1 F 68 12 133/81 H 99 Nasal Cannula 2 02/14/25 04:00 02/14/25 08:22 02/14/25 06:26 02/14/25 08:22 02/14/25 06:26 02/14/25 04:00 02/14/25 06:26 Narrative Exam General: AOx3, no acute distress, able to speak full sentences HEENT: NC/AT, mucous membranes moist, bilateral sclera anicteric Cardiovascular: regular rate and rhythm, S1/S2 present, no murmurs appreciated Pulmonary: breathing comfortably on 3 L NC, minimal expiratory wheezing appreciated Abdominal: soft, non-tender, non-distended, no rebound/guarding, normal bowel sounds present Musculoskeletal: normal ROM, no peripheral edema Skin: warm and dry, intact, no rashes Objective Labs 02/14/25 05:05 02/14/25 05:05 Labs: Laboratory Results - last 24 hr 02/11/25 02/14/25 08:15 05:05 WBC 7.5 RBC 5.79 Hgb 16.5 H Hct 52.8 MCV 91 MCH 28.5 MCHC 31.3 RDW Std Deviation 52.9 H Plt Count 161 Neut % (Auto) 53 Lymph % (Auto) 35 [place] % (Auto) 9 Eos % (Auto) 2 Baso % (Auto) 0 Neut # (Auto) 3.9 Lymph # (Auto) 2.6 [place] # (Auto) 0.7 Eos # (Auto) 0.1 Baso # (Auto) 0.0 Immature Gran # (Auto) 0.03 H Absolute Nucleated RBC 0.00 Immature Gran % 0 Nucleated RBC % 0 Sodium 144 Potassium 3.7 Chloride 105 Carbon Dioxide 31.9 H Anion Gap 7 BUN 25 H Creatinine 1.1 Estim Creat Clear Calc 79.0 eGFR > 60 BUN/Creatinine Ratio 23 H Glucose 98 Calculated Osmolality 291 Calcium 8.7 Corrected Calcium 9.2 Phosphorus 4.7 Magnesium 1.8 Total Bilirubin 0.5 AST 37 H ALT 61 H Alkaline Phosphatase 58 Total Protein 6.1 Albumin 3.4 Globulin 2.7 Albumin/Globulin Ratio 1.3 Coccidioides IgG Ab Negative Quality Measures Quality Measures VTE prophylaxis Advance care planning discussed with:: patient Assessment & Plan Assessment Current Active Medications: Generic Name Dose Route Start Last Admin Trade Name Freq PRN Reason Stop Dose Admin Acetaminophen 650 mg 02/11/25 00:35 Acetaminophen 325 Mg Tablet PO 03/13/25 00:34 Q4HR PRN Fever >100.4 an pain 1-3 Albuterol/Ipratropium 3 ml 02/13/25 11:00 02/14/25 06:26 Albuterol/Ipratropium (Duoneb) Rt Amanda 3 Ml Nebu INH 03/15/25 10:59 3 ml Q4HRRT YASMANY Administration Albuterol/Ipratropium 3 ml 02/13/25 10:37 Albuterol/Ipratropium (Duoneb) Rt Amanda 3 Ml Nebu INH 03/15/25 10:36 Q2HR PRN SHORTNESS OF BREATH OR WHEEZE Aspirin 81 mg 02/11/25 09:00 02/14/25 08:22 Aspirin Ec 81 Mg Tabec PO 03/13/25 08:59 81 mg QDAY YASMANY Administration Atorvastatin Calcium 80 mg 02/11/25 21:00 02/13/25 21:22 Atorvastatin Calcium 20 Mg Tablet PO 03/13/25 20:59 80 mg HS YASMANY Administration Furosemide 40 mg 02/13/25 09:00 02/13/25 08:10 Furosemide 40 Mg Tablet PO 03/15/25 08:59 40 mg On Hold: 02/14/25 07:50 QDAY YASMANY Administration Gabapentin 600 mg 02/11/25 17:00 02/14/25 05:36 Gabapentin 300 Mg Capsule PO 03/13/25 16:59 600 mg QID YASMANY Administration Hydromorphone HCl 0.5 mg 02/12/25 15:25 02/14/25 05:32 Hydromorphone Inj 2 Mg/Ml Vial IVP 02/17/25 15:24 0.5 mg Q4HR PRN Administration Pain 7-10 Ceftriaxone Sodium/Dextrose 1 gm in 50 mls @ 100 mls/hr 02/11/25 09:00 02/14/25 08:23 Rocephin/D5w 1gm Iv Premix IV 02/18/25 08:59 100 mls/hr QDAY YASMANY Administration Azithromycin 500 mg/ Sodium 250 mls @ 250 mls/hr 02/12/25 09:00 02/14/25 08:24 Chloride IV 02/19/25 08:59 250 mls/hr QDAY YASMANY Administration Magnesium Sulfate 2 gm in 50 mls @ 25 mls/hr 02/14/25 08:27 Magnesium Sulfate Ivpb IV 02/14/25 10:26 X1 ONE Losartan Potassium 25 mg 02/11/25 10:30 02/14/25 08:21 Losartan Potassium 25 Mg Tablet PO 03/13/25 10:29 25 mg DAILY YASMANY Administration Meclizine HCl 25 mg 02/13/25 11:27 Meclizine Hcl 25 Mg Tablet PO 03/15/25 11:26 TID PRN DIZZINESS Methylprednisolone Sodium Succinate 40 mg 02/14/25 09:00 02/14/25 08:21 Methylprednisolone Sod Succ 40 Mg/Ml Vial IVP 02/21/25 08:59 40 mg QDAY YASMANY Administration Metoprolol Succinate 100 mg 02/11/25 10:30 02/14/25 08:22 Metoprolol Succinate Xl 25 Mg Tabcr PO 03/13/25 10:29 100 mg DAILY YASMANY Administration Nicotine 21 mg 02/11/25 14:15 02/14/25 08:23 Nicotine Patch 21 Mg/24 Hr Patch.Td24 TOP 03/13/25 14:14 21 mg QDAY YASMANY Administration Pantoprazole Sodium 20 mg 02/11/25 09:00 02/14/25 08:22 Pantoprazole 20 Mg Tablet PO 03/13/25 08:59 20 mg QDAY YASMANY Administration Sennosides 1 tab 02/13/25 09:00 02/14/25 08:21 Senna/Docusate Sod 1 Tab Tablet PO 03/15/25 08:59 1 tab QDAY YASMANY Administration Protocol Plan Joel Molina is a 70-year-old male with history of type 2 diabetes mellitus, hypertension, hyperlipidemia, and COPD not on home oxygen who was admitted for COPD exacerbation and cardiology consulted to evaluate ACS vs new onset CHF. #Pulmonary arterial hypertension/cor pulmonale #Acute coronary syndrome, ruled out #Acute congestive heart failure, rule out Heavy smoker for 50 years, presented with shortness of breath and chest pressure for few months with some orthopnea. Also reported intermittent claudication. Physical examination showed chronic ischemic changes in his lower extremities. EKG noted to have ST depression throughout most leads, but cardiac cath did not reveal any CAD. Troponin on presentation was 0.522, down trended to 0.422 and likely demand ischemia. BNP was noted to be 686, chest x-ray showed pulmonary hypertension and vascular congestion but likely secondary to PAH/cor pulmonale vs left-sided HF. Cardiac cath on 02/12 revealed mild to moderate pulmonary hypertension, PA pressure 45 mmHg, right ventricular enlargement. Negative for left heart disease or left heart failure. ? Recommend to be discharged on current diuretic dose as well as home oxygen ? Follow-up outpatient in 2 to 3 months to reassess via echo while on home oxygen therapy #Abdominal aortic aneurysm Infrarenal AAA, transverse dimension 3.7 x 3.9 cm ? Follow up outpatient #Dyslipidemia Triglycerides 212, HDl 18, and LDL 86. ? Can continue atorvastatin #COPD exacerbation #Diabetes mellitus type 2 #History of hypertension ? Continue management per primary team ----- Plan discussed with attending physician Dr. Devyn Pickering MD PGY-2 Internal Medicine
[2025-02-14] MEDS: Magnesium Sulfate 2 GM Ivpb 2 GM/50 ML BAG IV (09:25)
--- NOTE | 2025-02-14 11:33 | ESDS_ITS ---
<Statement entered by Jeane Penny DO - 02/15/25 07:32> I, Jeane Penny DO, attest that I was physically present for the godwin portions of the service and evaluated the patient with the resident and I reviewed and discussed the case with the resident and agree with the resident's findings and plans of care as documented above <Statement entered by Yuval Jimenez MD - 02/14/25 15:54> I saw and examined patient personally and supervised PGY 1 resident, Dr. Dao with formulating a management plan. I agree with the documentation with the exceptions as listed below. Mr. Molina was hospitalized for COPD exacerbation. Received a total of 3 days of ceftriaxone IV daily and azithromycin 500 mg IV daily. He also was treated with methylprednisone 40 mg IV daily for 3 days. After which his condition improved. His urine culture grew E. coli resistant to penicillins. For his chief complaints of shortness of breath and chest pressure he also underwent cardiac catheterization which showed normal nonobstructive epicardial coronary trace, mild plaque in the LAD and circumflex arteries. We will discharge him on a 2-day course of doxycycline and prednisone 40 mg p.o. daily. He was also ordered home oxygen, home health and nebulizers at home. He was counseled on smoking cessation and advised to follow-up with station repairer Dr. Prince Shepard and his PCP within 1 week of discharge. Plan of care discussed with Attending Dr. Hemalatha Jimenez MD PGY 2 Disclaimer: This note was dictated by speech recognition. Minor errors in diesel mechanic apprentice may be present due to voice recognition software. Planned Discharge Date 02/14/25 DS: Providers Provider Date of admission: 02/10/25 23:28 Primary care physician: Physician No Primary/Family Admitting Provider: Brent Osorio MD Attending Provider on Admission: Jeane Penny DO Consults: 02/11/25 10:13 Referral Physical Therapy Routine Comment: Physician Instructions: 02/11/25 10:17 Consult to Cardiology Routine Comment: Consulting Provider: Lanie Shepard Instructions: nstemi Attending Provider on DC: Jeane Penny DO Discharging Provider: Jeane Penny DO Anticipated date of discharge: 02/14/25 DS: Diagnosis Problem List Completed Was Problem List Reviewed/Reconciled?: Yes Hospital Course Hospital Course Hospital course: Mr. Molina is a 70-year-old with past medical history of of type 2 diabetes, hypertension, and COPD who presented to the ED on 02/11/2025 with chief complaint of worsening shortness of breath, stroke was ruled out patient admitted for acute hypoxic respiratory, failure secondary to COPD exacerbation evaluation and management with antibiotics for pneumonia and UTI. In the ED he presented h ypertensive (160s/108) HR:92 and 92% oxy saturation on RA. He had mild transaminitis AST 147, ALT 69, lactate dehydrogenase 381, BNP 686, troponin 0.522. Trops downtrended. Chest xray revealed mild CHF and superimposed right lung base pneumonia, CTA showed pulmonary artery hypertension. COPD and multiple right lung nodules. In the ED, patient was given methylprednisolone 125 mg x 1, albuterol 2.5 mg and 7.5 mg x 1. Upon admission cardiology was consulted found to have no cardiac vessel disease, with PAH and HFpEF ef 50-55%. Started antibiotics azithromycin and ceftriaxone for CAP and UTI, and methylprednisone 40 mg and duonebs for COPD. Cardiology recommended lasix 40mg qd, metoprolol succinate 100 mg QD, and losartan 25 mg QD. Nausea resolved with [place] and Alondra maneuver. Patient declined SNF, has resolution of pulmonary and urinary symptoms, is safe to discharge home with home health. Discharge Instructions: ? You have been started on an antibiotic Doxycyline for your lung infection. Take 1 tablet twice a day for the next 2 days. ? You have been started on medication prednisone for your COPD. Take 2 tablets once a day for the next 2 days. - We have started you on a new water pill Lasix. Take one tablet once a day - We have stopped your old water pill HCTZ. Do not take any more ? Started on medication meclizine for dizziness. Take 1 tablet as needed ? You have been started on nicotine patch. Apply 1 once a day. ? Continue the rest of your medication as before ? Follow-up with your station repairer, Dr. Prince Shepard within 1 week of discharge ? Follow up with your primary care physician within 1 week of discharge. If you do not have a primary care physician, please follow up with the [facility] Residents clinic ([phone]) ? If you experience any new, worsening or persistent symptoms either call your primary doctor, or dial 911 or present to the emergency department. #Acute hypoxic respiratory failure secondary to #Acute COPD exacerbation, not on home O2 #Superimposed RLL pneumonia #Pulmonary nodules #Active Tobacco Smoking (50 pack years) #HFpEF (EF 50-55% 01/2025) #PAH #NSTEMI ruled out s/p cardiac cath 02/12 #Troponinemia - downtrending #UTI #Transaminitis - resolving #Pxk-zznhdbo-okbytrbym type 2 diabetes mellitus- well controlled #Primary hypertension #Hx of HLD #?Dementia #BPPV #Falls #Peripheral Neuropathy #Suspect PAD given smoking hx Patient seen and reviewed with attending Dr. Penny and supervising resident Dr. Jimenez. Note written by Fritz Dao MD PGY-1 Time spent discussing smoking cessation with patient: more than 10 minutes Status at Discharge Cognitive/behavioral status at discharge: Stable Functional status at discharge: independent ambulation Overall status at discharge: patient is back to baseline Time Spent with Patient Time attestation: Total time spent providing and/or coordinating discharge services: Time spent: Greater than 30 minutes Home Health Home Health Referral Orders: 02/13/25 17:35 Home Health Referral Routine Reason For Exam: copd exacerbation Home-Bound The patient must either because of illness or injury, need the aid of supportive devices such as crutches, canes, wheelchairs, and walkers; the use of special transportation; or the assistance of another person in order to leave their place of residence; OR have a condition such that leaving his or her home is medically contraindicated. In addition, the patient also meets the following criteria: patient is normally unable to leave the home and leaving home requires considerable taxing effort. Addendum to Home Health Certification Practitioner's Certification: I certify that the patient has been under my care in the hospital and the care of attending physician (see below). We had a [id number] encounter on (see date below). My clinical findings indicate that the patient is home bound per the above criteria and the Home Health Services noted in these orders are medically necessary. The primary reason for the [id number] encounter is related to the fact that the patient requires home health services. Date Certifying Uxfo-on-Uqll Physician Encounter: 02/10/25 Physician's Name who will Assume Oversight for Services: Young Miranda Physician's Phone No.who will Assume Oversight for Service: LOGISTICS SPECIALIST - Community Resources: No PT to Evaluate: Yes PT to evaluate and provide a treatmnet plan to increase patient's mobility and strength. Wound Care: No IV Therapy: No RN Safety Evaluation: Yes RN to evaluate and create a plan of care that will produce positive outcomes. Palliative Treatment: No Palliative treatment and evaluate the need for hospice. Home Health Aide - Personal Care: Yes Home Health Aide to assist with any ADL's. Exam Vital Signs Temp Pulse Resp BP Pulse Ox O2 Del Method O2 Flow Rate 96.5 F L 67 12 133/81 H 99 Nasal Cannula 2 02/14/25 08:00 02/14/25 10:22 02/14/25 10:22 02/14/25 08:22 02/14/25 10:22 02/14/25 08:00 02/14/25 10:22 Narrative Exam General: Alert. Morbidly obese in on NC , a and o x3 Skin: Warm, dry, intact. No rash or ecchymoses. Head: Normocephalic, atraumatic. Eye: Normal conjunctiva, PERRL. Throat: Oral mucosa moist. No obvious lesions in oropharynx. Cardiovascular: Regular rate and rhythm, no murmur, +S1/S2. vilacious lower extremities with trace edema Respiratory:bilateral expiratory wheezes without crackles. Improved airflow Gastrointestinal: Soft, nontender, No guarding or rebound tenderness. Extremities:Chronic ischemic changes in the lower extremities, shiny skin, loss of hair, peripheral redness, weak peripheral pulses bilaterally the lower extremities Neuro: Alert and oriented x3.No focal deficits observed. Conversant, moving all extremities. No overt cerebellar signs/incoordination. Psychiatric: Cooperative, appropriate affect Discharge Plan Plan Patient Disposition: Home w/HOME HEALTH Patient condition on transfer: Stable Care Plan Goals: ? You have been started on an antibiotic Doxycyline for your lung infection. Take 1 tablet twice a day for the next 2 days. ? You have been started on medication prednisone for your COPD. Take 2 tablets once a day for the next 2 days. - We have started you on a new water pill Lasix. Take one tablet once a day - We have stopped your old water pill HCTZ. Do not take any more ? Started on medication meclizine for dizziness. Take 1 tablet as needed ? You have been started on nicotine patch. Apply 1 once a day. ? Continue the rest of your medication as before ? Follow-up with your station repairer, Dr. Prince Shepard within 1 week of discharge ? Follow up with your primary care physician within 1 week of discharge. If you do not have a primary care physician, please follow up with the [facility] Residents clinic ([phone]) ? If you experience any new, worsening or persistent symptoms either call your primary doctor, or dial 911 or present to the emergency department. Prescriptions/Referrals Prescriptions/Med Rec: New nicotine 21 mg/24 hr Patch 24 Hour 21 mg top QDAY 14 Days Qty: 14 0RF prednisone 20 mg tablet 40 mg PO QDAY 2 Days Qty: 4 0RF doxycycline hyclate 100 mg capsule 100 mg PO BID 2 Days Qty: 4 0RF furosemide 40 mg Tablet 40 mg PO QDAY 30 Days Qty: 30 0RF meclizine 25 mg Tablet 25 mg PO TID PRN (Reason: Dizziness) 14 Days Qty: 52 0RF albuterol sulfate [Ventolin HFA] 90 mcg/actuation HFA aerosol inhaler 1 inh inhalation QID PRN (Reason: shortness of breath or wheezing) 30 Days Qty: 8.5 5RF Continued multivitamin Tablet 1 tab PO QDAY dutasteride 0.5 mg capsule 0.5 mg PO QDAY metformin 500 mg tablet 500 mg PO BID gabapentin 600 mg tablet 600 mg PO QID omeprazole 20 mg capsule,delayed release(DR/EC) 20 mg PO DAILY aspirin 81 mg Tablet 81 mg PO QDAY Stiolto Respimat 2.5-2.5 mcg/actuation Mist 2 puff INHALATION Q24H metoprolol succinate 100 mg tablet extended release 24 hr 100 mg PO DAILY Patient Comments: TAKE 1 TABLET BY MOUTH DAILY rosuvastatin 10 mg tablet 10 mg PO DAILY Patient Comments: TAKE 1 TABLET BY MOUTH DAILY losartan 25 mg tablet 25 mg PO DAILY Patient Comments: TAKE 1 TABLET BY MOUTH DAILY hydromorphone 4 mg tablet 4 mg PO QID PRN (Reason: pain (scale score 7-10)) Patient Comments: TAKE 1 TABLET BY MOUTH FIVE TIMES DAILY Discontinued losartan-hydrochlorothiazide 100-25 mg tablet 1 tab PO QDAY hydrochlorothiazide 12.5 mg capsule 12.5 mg PO DAILY Patient Comments: TAKE 1 CAPSULE BY MOUTH DAILY IN THE MORNING Referrals: No Primary/Family,Physician [Primary Care Provider] Lanie Shepard MD [Physician, Cardiology] Patient/Caregiver Discharge Instructions Education Materials: COPD: Chronic Coughing, What Is COPD?, Treatment for COPD, Pulmonary Hypertension, Kicking the Smoking Habit Print Language: Russian Stand Alone Forms: [facility] Award Info., Patient Portal Info Letter Discharge Order Discharge Orders: Discharge (Routine); Ordered 02/14/25 Ordered By: Yuval Jimenez Quality Discharge Quality Measures VTE prophylaxis
--- NOTE | 2025-02-14 15:02 | PC.CM ---
Addendum entered by Effie Macario RN 02/15/25 11:07: [facility] accepted patient and start of care date set for 02/16. Original Note: I did not see a preference for a home health agency so I set the referral to [facility]. [facility] accepted and we are pending start of care date.
== END 2025-02-14 13:05 | disposition home health service (06) | DRG 190 ==
LOC: SERX 23:46 → SERHOLD 23:50 → S2NX 02-11 03:46
PROVIDERS: Internal Medicine Cardiovascular Disease; Registered Nurse General Practice; Student in an Organized Health Care Education/Training Program; Admitting Provider Student in an Organized Health Care Education/Training Program; Emergency Provider Emergency Medicine; Visit Provider Internal Medicine
DX: J44.1 Chronic obstructive pulmonary disease with (acute) exacerbation (principal); I21.A1 Myocardial infarction type 2; J18.9 Pneumonia, unspecified organism; J96.01 Acute respiratory failure with hypoxia; N39.0 Urinary tract infection, site not specified; I50.30 Unspecified diastolic (congestive) heart failure; I11.0 Hypertensive heart disease with heart failure; J44.0 Chronic obstructive pulmonary disease with (acute) lower respiratory infection; E11.51 Type 2 diabetes mellitus with diabetic peripheral angiopathy without gangrene; H81.10 Benign paroxysmal vertigo, unspecified ear; E11.40 Type 2 diabetes mellitus with diabetic neuropathy, unspecified; Z87.891 Personal history of nicotine dependence; E78.5 Hyperlipidemia, unspecified; Z91.148 Patient's other noncompliance with medication regimen for other reason; I27.81 Cor pulmonale (chronic); I71.43 Infrarenal abdominal aortic aneurysm, without rupture; R74.01 Elevation of levels of liver transaminase levels; F03.90 Unspecified dementia, unspecified severity, without behavioral disturbance, psychotic disturbance, mood disturbance, and anxiety; F17.210 Nicotine dependence, cigarettes, uncomplicated; G89.29 Other chronic pain; Z79.4 Long term (current) use of insulin; Z79.82 Long term (current) use of aspirin; Z79.84 Long term (current) use of oral hypoglycemic drugs; B96.20 Unspecified Escherichia coli [E. coli] as the cause of diseases classified elsewhere; R29.6 Repeated falls; I27.21 Secondary pulmonary arterial hypertension; Z91.81 History of falling
CPT/HCPCS: 36415; 70450; 71045; 71275; 76770; 80053; 80061; 80307; 81001; 83036; 83615; 83735; 83880; 84100; 84145; 84443; 84484; 85025; 85610; 85652; 85730; 86140; 86331; 86635; 87077; 87086; 87186; 87205; 87502; 87811; 93005; 93306; 93925; 94640; 94644; 94645; 94762; 96365; 96366; 96375; 96376; 97163; 99152; 99285; A4649; A9270; C1769; C1887; C1894; J0153; J0168; J0456; J0461; J0696; J1171; J1643; J1644; J1815; J1938; J2250; J2312; J2371; J2405; J2919; J3010; J3475; J3490; J7050; Q9967; J2305

== ENCOUNTER 2025-03-13 13:36 | Outpatient (AMB) | payer MEDICARE, MEDICAID, SELFPAY ==
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
[2025-03-13 14:16] VITALS: BP 124/80; PULSE 76; RESP 16; TEMP 36.1; O2SAT 90; BMI 34.5
== END 2025-03-13 15:26 | disposition home or self-care (01) ==
LOC: HODAHC 13:36
PROVIDERS: Supervising Provider Internal Medicine
DX: Z76.0 Encounter for issue of repeat prescription (principal); E66.01 Morbid (severe) obesity due to excess calories; Z68.34 Body mass index [BMI] 34.0-34.9, adult; E11.9 Type 2 diabetes mellitus without complications; I10 Essential (primary) hypertension; J44.9 Chronic obstructive pulmonary disease, unspecified
CPT/HCPCS: 99203; G0463

== ENCOUNTER → 2025-04-09 | Outpatient (CLI) | payer MEDICARE, MEDICAID, SELFPAY ==
--- NOTE | 2025-04-09 16:00 | XR_ITS ---
Examination: CT abdomen and pelvis without contrast. Coronal 3-D reconstructions. Sagittal 2-D reconstructions. Date and time of exam: April 09, 2025, 1549 hours INDICATIONS: Diagnosis abdominal aortic aneurysm without rupture, infrarenal transverse aortic dimensions 3.7 x [address] abdomen/pelvis December 26, 2023 CTDI: vol (mGy): 11.8 DLP: (mGycm): 766 Technique: Axial images of the abdomen have been obtained, 3 mm slice thickness Intravenous contrast material has not been administered. Low dose protocols were performed. One or more of the following dose reduction techniques were used; automated exposure control, adjustment of the mA and/or KV according to patient size, use of iterative reconstruction technique. Findings: No visualized liver or splenic lesion Contracted gallbladder No pancreatic or adrenal mass No renal or ureteral calculi, no hydronephrosis Infrarenal abdominal aortic aneurysm AP dimension 4.3 cm mediolateral dimension 4.3 cm, cephalocaudad dimension 7.9 cm No bowel obstruction Colonic diverticulosis Urinary bladder intact Mild prostatomegaly Prominent osteopenia IMPRESSION: Enlarging infrarenal abdominal aortic aneurysm, AP dimension 4.3 cm mediolateral dimension 4.3 cm
== END | disposition home or self-care (01) ==
PROVIDERS: PCP Student in an Organized Health Care Education/Training Program; Referring Provider Student in an Organized Health Care Education/Training Program; Visit Provider Student in an Organized Health Care Education/Training Program
DX: I71.43 Infrarenal abdominal aortic aneurysm, without rupture (principal)
CPT/HCPCS: 74176

== ENCOUNTER 2025-04-10 14:15 | Outpatient (AMB) | payer MEDICARE, MEDICAID, SELFPAY ==
[2025-04-10 14:26] VITALS: BP 150/86; PULSE 79; RESP 19; TEMP 36.3; O2SAT 91; BMI 35.6
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
== END 2025-04-10 15:28 | disposition home or self-care (01) ==
LOC: HODAHC 14:15
PROVIDERS: Supervising Provider Internal Medicine
DX: Z76.0 Encounter for issue of repeat prescription (principal); E11.9 Type 2 diabetes mellitus without complications; I10 Essential (primary) hypertension; J44.9 Chronic obstructive pulmonary disease, unspecified
CPT/HCPCS: 99214; G0463